=== PATIENT | male | born 1935 | race Caucasian/White ===

== ENCOUNTER 2021-12-31 15:38 | Outpatient (CLI) | payer MEDICARE, BC, SELFPAY | END 2021-12-31 15:39 | disposition home or self-care (01) | LOC: AMB 01-12 11:38 | PROVIDERS: Visit Provider Emergency Medicine Emergency Medical Services | DX: S09.93XA Unspecified injury of face, initial encounter (principal); S89.92XA Unspecified injury of left lower leg, initial encounter; W19.XXXA Unspecified fall, initial encounter; Y92.008 Other place in unspecified non-institutional (private) residence as the place of occurrence of the external cause | CPT/HCPCS: A0425; A0429 ==

== ENCOUNTER 2021-12-31 16:02 | Observation (INO) | payer MEDICARE, BC, SELFPAY ==
[2021-12-31] VITALS (16 sets, daily range): BP systolic 102–134; BP diastolic 64–80; PULSE 62–93; RESP 8–23; TEMP 36.4–36.9; O2SAT 67–97; BMI 33.7; BMI 33.8
--- NOTE | 2021-12-31 16:07 | CRLHL7_ITS ---
For Patients: As a result of the Century Cures Act, medical imaging exams and procedure reports are released immediately into your electronic medical record. You may view this report before your referring provider. If you have questions, please contact your health care provider. INDICATION: Fall, LOC, large laceration. TECHNIQUE: Head CT without contrast. Coronal and sagittal reformats were generated. COMPARISON: None. FINDINGS: CSF spaces: Within normal limits for age. Brain parenchyma and extra-axial spaces: Mild generalized cerebral and cerebellar atrophy. Nonspecific low attenuation white matter changes consistent with chronic microvascular disease. No sign of mass, hemorrhage, or midline shift. Skull base and calvarium: The visualized paranasal sinuses and mastoid air cells demonstrate no acute or significant findings. The visualized orbits are grossly unremarkable. No skull fractures. Soft tissues: Left frontal scalp laceration, with overlying density, likely dressing. Right posterior parietal subgaleal hematoma, with small foci of subcutaneous air, suggestive of laceration. Partially calcified soft tissue nodule in the subcutaneous tissues of the right suboccipital region. IMPRESSION: No acute intracranial abnormality. Please note that all CT scans at this facility use dose modulation, iterative reconstruction, and/or weight-based dosing when appropriate to reduce radiation dose to as low as reasonably achievable. Dictated by Alfredo Ziegler MD @ 12/31/2021 5:05:19 PM (Electronically Signed)
--- NOTE | 2021-12-31 16:07 | CRLHL7_ITS ---
For Patients: As a result of the Century Cures Act, medical imaging exams and procedure reports are released immediately into your electronic medical record. You may view this report before your referring provider. If you have questions, please contact your health care provider. INDICATION: Fall. TECHNIQUE: CT cervical spine without contrast. Coronal and sagittal reformats were generated. COMPARISON: None. FINDINGS: Vertebrae: Alignment is normal. No fractures or suspicious bony lesions. Discs and facet joints: Multilevel degenerative changes in the form of disc space narrowing, subchondral sclerosis, and marginal osteophyte formation. The changes are most prominent at C6-C7. Osteoarthritic changes of the apophyseal joints of the cervical spine. Extraspinal findings: Prevertebral soft tissues, visualized airway, and visualized lungs are unremarkable. IMPRESSION: Degenerative changes. No acute abnormality. Please note that all CT scans at this facility use dose modulation, iterative reconstruction, and/or weight-based dosing when appropriate to reduce radiation dose to as low as reasonably achievable. Dictated by Alfredo Ziegler MD @ 12/31/2021 4:57:28 PM (Electronically Signed)
--- NOTE | 2021-12-31 16:07 | CRLHL7_ITS ---
For Patients: As a result of the Century Cures Act, medical imaging exams and procedure reports are released immediately into your electronic medical record. You may view this report before your referring provider. If you have questions, please contact your health care provider. Indication: Trauma, fall. Technique: Two views of the left knee. Comparison: None. Findings/Impression: Comminuted impacted fracture of the proximal tibial metaphysis. On lateral view, fracture line extends to the tibial plateaus. There is approximately 8 mm posterior displacement of the proximal tibial fracture component. There is an additional mildly displaced fracture of the proximal fibular metaphysis. Small knee joint effusion. Prepatellar soft tissue thickening is noted. Dictated by Sydney Portillo MD @ 12/31/2021 5:11:34 PM (Electronically Signed)
--- NOTE | 2021-12-31 16:12 | ED.GENADULT ---
HPI - General Adult General Chief complaint: Fall/Minor Trauma Stated complaint: Fall w/Head Trauma Time Seen by Provider: 12/31/21 16:07 History of Present Illness HPI narrative: This 86-year-old male comes in by ambulance and a trauma team activation is initiated. He was found down in the garage. He had fallen from a ladder onto the garage floor and had loss of consciousness. He has a large laceration approximately 8 cm on the left side of his head. He complains of pain in his left knee. He does not report any neck pain. He arrives with pressure applied to the ongoing bleed from the left side of his head. Ambulance personnel state that there was a large amount of blood on the floor of the garage. He did have some lightheadedness when they moved him into the ambulance. He does not complain of headache or neck pain. His primary complaint is his left knee. He is on anticoagulants. Related Data Home Medications Medication Instructions Recorded Confirmed aspirin 81 mg chewable tablet 81 mg PO DAILY 12/31/21 12/31/21 clopidogrel 75 mg tablet mg 12/31/21 lisinopril 10 mg tablet mg 12/31/21 nitroglycerin 0.4 mg sublingual mg 12/31/21 tablet simvastatin 20 mg tablet mg 12/31/21 vit C 250 mg-vit E 90 mg-zinc 40 1 tab PO BID 12/31/21 12/31/21 mg-copper 1 [id number] capsule (PreserVision AREDS-2) Allergies Allergy/AdvReac Type Severity Reaction Status Date / Time No Known Drug Allergies Allergy Verified 12/31/21 16:15 Review of Systems Status of ROS: Reports: 10 or more systems reviewed and unremarkable except as noted in History and below Narrative: Constitutional: No fevers, no weight gain or loss. Eyes: No discharge. No vision changes. HENT: No congestion, no sore throat, no ear pain. Laceration on the left side of the head. Cardiovascular: No chest pain, no palpitations. Respiratory: No shortness of breath, no wheezes, no cough. Gastrointestinal: No abdominal pain, no vomiting, no diarrhea. Genitourinary: No dysuria, no hematuria. Musculoskeletal: Unable to lift his left leg. Swelling around the left knee joint. Skin: No rashes, no pruritis. Neurological: No dizziness, weakness, sensory change, speech change. Endo/Heme/Allergies: No bruising or bleeding. No polydipsia. Pysch: no suicidality, no anxiety, no insomnia. All other systems reviewed and are negative. PFSH [facility] Social History Smoking Status: Never smoker Do you use any of these nicotine containing products: None Second hand tobacco smoke exposure: Yes (years ago) How often do you have a drink containing alcohol: never How often do you have six or more drinks on one occasion: Never AUDIT-C Alcohol total score: 0 Non-prescribed substance use: denies use service: Yes Exam Narrative: Exam Narrative: Constitutional: Well-developed, well-nourished, no acute distress. HEENT: Large laceration on the left side of head with ongoing bleeding. It is approximately 8 cm in length. Neck: The patient arrives in a C-collar. Heart: Regular. No murmurs. Normal rate. Intact distal pulses. Lungs: Clear to auscultation. No chest discomfort. No wheezes, rhonchi, or rales. Abdomen: Normal bowel sounds. Nontender. No rebound tenderness. Genitalia: Deferred. Back: No midline tenderness. Normal range of motion. Extremities: Swelling and pain around the left knee joint. He is unable to lift his leg from the bed due to pain and disability. Skin: No rash. Warm. No erythema or pallor. Neurologic: No altered sensation. No weakness. Alert and oriented. GCS is 15. Psychiatric: No suicidality. No anxiety or depression. No insomnia. Nursing notes and vitals signs are reviewed. Const: Vital Signs, click to edit/add: Vital Signs - 24 hr 12/31/21 16:38 12/31/21 17:00 12/31/21 17:00 Temperature 97.5 F L Pulse Rate [Apical ] 68 64 71 Respiratory Rate Blood Pressure [Ri ght Upper Arm] 110/68 118/74 130/75 Pulse Oximetry 91 93 90 Oxygen Delivery Me thod Room Air Room Air Room Air 12/31/21 17:10 12/31/21 17:20 12/31/21 16:30 Temperature Pulse Rate [Apical ] 64 62 72 Respiratory Rate 17 12 Blood Pressure [Ri ght Upper Arm] 102/69 126/71 103/72 Pulse Oximetry 95 95 89 Oxygen Delivery Me thod Room Air Room Air Room Air 12/31/21 16:24 12/31/21 16:17 Temperature Pulse Rate [Apical ] 71 91 Respiratory Rate 12 Blood Pressure [Ri ght Upper Arm] 102/76 125/80 Pulse Oximetry 93 67 L Oxygen Delivery Me thod Room Air Room Air Course Vital Signs Vital signs: Initial Vital Signs Pulse Rate 91 12/31/21 16:17 Respiratory Depth Normal 12/31/21 16:17 Blood Pressure 125/80 12/31/21 16:17 Blood Pressure Mean 95 12/31/21 16:17 Pulse Oximetry 67 L 12/31/21 16:17 Oxygen Delivery Method 12/31/21 16:17 Vital Signs Pulse Rate 91 12/31/21 16:17 Blood Pressure 125/80 12/31/21 16:17 Pulse Oximetry 67 L 12/31/21 16:17 Oxygen Delivery Method 12/31/21 16:17 Temperature 97.5 F L 12/31/21 16:38 Pulse Rate 62 12/31/21 17:20 Respiratory Rate 17 12/31/21 17:10 Blood Pressure 126/71 12/31/21 17:20 Pulse Oximetry 95 12/31/21 17:20 Oxygen Delivery Method 12/31/21 17:20 Medical Decision Making MDM Narrative Medical decision making narrative: This patient comes in with trauma team activation because of a fall in the garage at home. He was up on a ladder and had loss of consciousness. His main complaint is pain in his left knee. He is on blood thinners and has a history of a heart condition and cerebrovascular accident. He arrives with blood pressure a bit light at systolic value of 102. An IV was established and he received a L of normal saline. His blood pressure improved to around 130 for systolic value. He did receive a half a mg of Dilaudid for pain relief at that time. Lab results returned with reassuring hemoglobin at around 14. CT imaging of the head and C-spine is negative for acute injury. He was pumping some blood from the laceration on the left side of his head. Soon after the CT scan was completed IA anesthetize the wound with 1% lidocaine with epinephrine and then placed a total of 11 javier to stop the bleeding and to approximate the wound edges. X-ray imaging of the left knee shows fracture of the proximal tibia and fibula. I relayed these images to the orthopedic surgeon on-call, Dr. Cooper, who stated that he would not likely do a surgical repair of this injury. The patient was placed in a knee immobilizer and I spoke with the hospitalist senior market intelligence consultant, , who will arrange for his admission. He will likely need rehab in a facility. Lab Data Labs: Lab Results 12/31/21 12/31/21 Range/Units 16:07 16:07 WBC 9.59 (4.50-11.00) K/uL RBC 4.64 (4.30-5.90) m/uL Hgb 14.5 (13.5-17.5) gm/dL Hct 43.3 (37.0-53.0) % MCV 93 (80-100) fL MCH 31 (26-34) pg MCHC 34 (32-36) gm/dL RDW Coeff of Zaira 13.5 (11.5-15.5) % Plt Count 248 (140-440) K/uL Neut % (Auto) 42.4 (42.0-72.0) % Lymph % (Auto) 48.1 H (20-44) % [place] % (Auto) 7.9 (0.0-11.0) % Eos % (Auto) 0.9 (0.0-7.0) % Baso % (Auto) 0.3 (0.0-3.0) % Neut # (Auto) 4.06 (1.7-7.0) K/uL Lymph # (Auto) 4.60 H (0.90-2.90) K/uL [place] # (Auto) 0.80 (0.00-0.90) K/UL Eos # (Auto) 0.09 (0.00-0.50) K/uL Baso # (Auto) 0.03 (0.00-0.30) K/uL Abs Immat Gran (auto) 0.04 (0.00-0.30) K/uL Sodium 137 (135-149) mmol/L Potassium 3.7 (3.6-5.1) mmol/L Chloride 106 (96-114) mmol/L Carbon Dioxide 24 (20-32) mmol/L BUN 22 (7-30) mg/dL Creatinine 1.1 (0.5-1.5) mg/dL Estimated GFR 66 ml/min Glucose 132 H (60-115) mg/dL Calcium 8.7 (8.4-10.6) mg/dL Imaging Data CT scan - C spine: Radiologist's impression: Degenerative changes. No acute abnormality. CT scan - head: Radiologist's impression: No acute intracranial abnormality. XR L Knee: Radiologist's impression: Comminuted impacted fracture of the proximal tibial metaphysis. On lateral view, fracture line extends to the tibial plateaus. There is approximately 8 mm posterior displacement of the proximal tibial fracture component. There is an additional mildly displaced fracture of the proximal fibular metaphysis. Small knee joint effusion. Prepatellar soft tissue thickening is noted. ECG Data Attestation: I personally reviewed and interpreted this ECG as follows: Interpretation: Normal sinus rhythm with occasional PVCs. Rate 71 beats per minute. There are no specific ST or T-wave abnormalities. Critical Care Time Critical Care Time Critical Care Time: Yes Attestation: The patient required my highest level preparedness to intervene emergently and I personally spent this critical care time directly and personally managing the patient. This critical care time included: Obtaining a history; Examining the patient; Pulse oximetry; Ordering and reviewing of studies; Arranging urgent treatment with development of a management plan; Evaluation of patients response to treatment; Frequent reassessment discussions with other providers. This critical care time was performed to assess and manage the high probability of imminent life-threatening deterioration that could result in multiorgan failure. It was exclusive of separate billable procedures and treating other patients and teaching time. Total Critical Care Time in Minutes: 40 Discharge Plan Discharge Clinical Impression: Fracture of tibia and fibula, Concussion with loss of consciousness, Laceration of scalp Patient Disposition: Admitted As Inpatient Condition: Unchanged
[2021-12-31 16:19] LABS: Basophils Absolute Auto 0.03 K/uL (0.00-0.30); Basophils Percent Auto 0.3 % (0.0-3.0); Eosinophils Absolute Auto 0.09 K/uL (0.00-0.50); Eosinophils Percent Auto 0.9 % (0.0-7.0); Hematocrit 43.3 % (37.0-53.0); Hemoglobin* 14.5 gm/dL (13.5-17.5); Immature Granulocytes Abs Auto 0.04 K/uL (0.00-0.30); Lymphocytes Percent Auto 48.1 % (20-44); Mean Corpuscular HGB Conc 34 gm/dL (32-36); Mean Corpuscular Hemoglobin 31 pg (26-34); Mean Corpuscular Volume 93 fL (80-100); Monocytes Percent Auto 7.9 % (0.0-11.0); Neutrophils Absolute Auto 4.06 K/uL (1.7-7.0); Neutrophils Percent Auto 42.4 % (42.0-72.0); Platelet Count* 248 K/uL (140-440); RDW Coefficient of Variation % 13.5 % (11.5-15.5); Red Blood Count 4.64 m/uL (4.30-5.90); Slide Review Reflex No; White Blood Count* 9.59 K/uL (4.50-11.00)
[2021-12-31] MEDS: 0.9 % SODIUM CHLORIDE 1000 ml 1,000 ML IV (16:30)
[2021-12-31 16:36] LABS: Chloride* 106 mmol/L (96-114)
[2021-12-31 16:37] LABS: Potassium* 3.7 mmol/L (3.6-5.1); Sodium* 137 mmol/L (135-149)
[2021-12-31 16:39] LABS: Creatinine* 1.1 mg/dL (0.5-1.5); Estimated Glomerular Filt Rate 66 ml/min
[2021-12-31 16:40] LABS: Blood Urea Nitrogen* 22 mg/dL (7-30); Calcium* 8.7 mg/dL (8.4-10.6); Carbon Dioxide* 24 mmol/L (20-32); Glucose* 132 mg/dL (60-115)
[2021-12-31] MEDS: HYDROmorphone 0.5 mg/0.5 ml inj IVP (17:37)
--- NOTE | 2021-12-31 17:37 | ED.NURSE ---
dilaudid 0.5 mg iv given for pain -6/10 in his left knee.
--- NOTE | 2021-12-31 17:45 | ED.NURSE ---
did need to place 02 at 2 l due to sats dropping to 87% after the dilaudid. is much more comfortable. resting. katelynn at bs.
--- NOTE | 2021-12-31 18:15 | ED.NURSE ---
HS aware of admission. did leave and she wants to be called if any changes, otherwise will be back in the am. is resting now. 02 at 2 l and sats 94%.
--- NOTE | 2021-12-31 19:20 | PM.IMHP1 ---
Hospitalist- H&P: HPI History of Present Illness Time Seen by Provider: 18:20 Date Seen: 12/31/21 Chief complaint: Fall w/Head Trauma Narrative: Jerod Weber is a 86 year old male who presented to the emergency room by ambulance after a fall at home. Patient was working in his garage on a ladder when he fell and hit his head. There was a large scalp laceration noted and patient did have brief loss of consciousness. Jerod denies preceding palpitations, dizziness, or lightheadedness. Upon arrival to the ED, his only complaint was some ?stiffness? in the back of his neck. ER course and findings: - trauma code call given age, mechanism, and large bleeding head laceration - no acute findings noted on head CT or C-spine CT - Head laceration repaired with javier. Initial Hgb wnl - comminuted impacted fracture of the proximal tibial metaphysis extending to tibial plateau with 8mm posterior displacement of proximal tibial fx component, in addition to mildly displaced fx of proximal fibular metaphysis - Given dilaudid x1 for pain - ER physician discussed with orthopedic surgery, did not feel that this fracture would require surgery - Placed in a knee immobilizer When I see patient for admission, his only complaint is a feeling of ?stiffness? in the back of his neck. He denies chest pain, palpitations, dizziness, lightheadedness, leg pain, or headache. Past medical history is significant for CAD: multi-vessel stenting in November of 2012, in addition to a drug-eluting stent in proximal RCA in 2013. Last myocardial perfusion study was in October 2020, revealing no evidence of myocardial ischemia, with normal ejection fraction of 63% at that time. Last TTE was performed November 2020, revealing normal LV size and function with mild MR and mild TR. He follows with [facility], last saw Dr. Bennett in November of 2021. During that visit, he was found to be in sinus bradycardia and deferred further workup for this. 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 Known to have an essential tremor, follows with Neurology for this. PCP is Dr. Marques at the [facility]. Patient lives with Keyla machado (she would be medical decision maker if needed). 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 He denies current tobacco or alcohol use. He requests Full Code status. Review of Systems Status of ROS: Reports: 10 or more systems reviewed and unremarkable except as noted in History and below PFSH [facility] Medical History (Updated 12/31/21 @ 18:52 by Vanessa Church MD) ASCVD (arteriosclerotic cardiovascular disease) CVA (cerebral vascular accident) Hyperlipidemia Sinus bradycardia Surgical History (Updated 12/31/21 @ 18:52 by Vanessa Church MD) H/O hernia repair History of cholecystectomy History of heart artery stent Social History Smoking Status: Never smoker Do you use any of these nicotine containing products: None Second hand tobacco smoke exposure: Yes (years ago) How often do you have a drink containing alcohol: never How often do you have six or more drinks on one occasion: Never AUDIT-C Alcohol total score: 0 Non-prescribed substance use: denies use service: Yes Meds Home Medications and Allergies Home Medications Medication Instructions Recorded Confirmed Type aspirin 81 mg chewable tablet 81 mg PO DAILY 12/31/21 12/31/21 History clopidogrel 75 mg tablet 75 mg PO DAILY 12/31/21 12/31/21 History lisinopril 10 mg tablet 10 mg PO DAILY 12/31/21 12/31/21 History nitroglycerin 0.4 mg sublingual 0.4 mg sublingual Q5M PRN 12/31/21 12/31/21 History tablet simvastatin 20 mg tablet 20 mg PO HS 12/31/21 12/31/21 History vit C 250 mg-vit E 90 mg-zinc 40 1 tab PO BID 12/31/21 12/31/21 History mg-copper 1 [id number] capsule (PreserVision AREDS-2) Home Medication Comments: Confirmed that patient stopped Plavix earlier this year. Allergies Allergy/AdvReac Type Severity Reaction Status Date / Time No Known Drug Allergies Allergy Verified 12/31/21 16:15 Exam Narrative: Exam Narrative: GEN: Patient is awake and oriented, he is answering questions appropriately. He is a little sleepy as he received Dilaudid just prior to our interview HEENT: Normal external ears, PERRL and EOMIs bilaterally, no scleral icterus CV: sinus bradycardia with rate in the 50s, No concerning murmurs, rubs, or gallops R: LCTA bilaterally without concerning wheezing, rales, or rhonchi Ext: warm and well perfused with normal peripheral pulses. Wearing knee immobilizer on left Skin: abrasions over right lower extremity, all hemostatic. 8 cm head laceration, repaired with javier and hemostatic Neuro: Nonfocal Psych: Appropriate Const: Vital Signs, click to edit/add: Vital Signs - 24 hr 12/31/21 16:38 12/31/21 17:00 12/31/21 17:00 Temperature 97.5 F L Pulse Rate [Apical ] 68 64 71 Respiratory Rate Blood Pressure [Ri ght Upper Arm] 110/68 118/74 130/75 Pulse Oximetry 91 93 90 Oxygen Delivery Me thod Room Air Room Air Room Air Oxygen Flow Rate 12/31/21 17:10 12/31/21 17:20 12/31/21 16:30 Temperature Pulse Rate [Apical ] 64 62 72 Respiratory Rate 17 12 Blood Pressure [Ri ght Upper Arm] 102/69 126/71 103/72 Pulse Oximetry 95 95 89 Oxygen Delivery Me thod Room Air Room Air Room Air Oxygen Flow Rate 12/31/21 16:24 12/31/21 16:17 12/31/21 17:45 Temperature Pulse Rate [Apical ] 71 91 Respiratory Rate 12 Blood Pressure [Ri ght Upper Arm] 102/76 125/80 Pulse Oximetry 93 67 L 87 L Oxygen Delivery Me thod Room Air Room Air Nasal Cannula Oxygen Flow Rate 2 12/31/21 19:12 12/31/21 17:30 12/31/21 18:00 Temperature Pulse Rate [Apical ] 67 62 Respiratory Rate 8 L Blood Pressure [Ri ght Upper Arm] 116/75 111/67 Pulse Oximetry 93 94 96 Oxygen Delivery Me thod Nasal Cannula Room Air Nasal Cannula Oxygen Flow Rate 12/31/21 18:30 Temperature Pulse Rate [Apical ] 93 Respiratory Rate 23 Blood Pressure [Ri ght Upper Arm] 108/64 Pulse Oximetry 96 Oxygen Delivery Me thod Nasal Cannula Oxygen Flow Rate Hospitalist - H&P: Result Labs Labs: Short CBC 12/31/21 Range/Units 16:07 WBC 9.59 (4.50-11.00) K/uL Hgb 14.5 (13.5-17.5) gm/dL Hct 43.3 (37.0-53.0) % Plt Count 248 (140-440) K/uL BMP 12/31/21 16:07 Sodium 137 Potassium 3.7 Chloride 106 Carbon Dioxide 24 BUN 22 Creatinine 1.1 Glucose 132 H Calcium 8.7 Assessment and Plan Assessment and plan (1) Fracture of tibia and fibula: Status: Acute (2) Fall: Status: Acute (3) Concussion with loss of consciousness: Status: Acute (4) Laceration of scalp: Status: Acute (5) Sinus bradycardia: Status: Acute Plan 86 yo male with fall at home resulting in head laceration and tib/fib fracture: 1. Fracture: Per Ortho, continue knee immobilizer. PT/OT referrals ordered to assist with dispo planning. 2. Follow serial hemoglobins given bleeding from head laceration. 3. Although patient believes fall was mechanical, will monitor with telemetry given bradycardia and CAD history. 4. Defer prophylaxis at this time given laceration/bleeding. 5. Patient requests Full Code status.
--- NOTE | 2021-12-31 19:21 | W.PC.EDHO ---
Primary Language: Preferred Language: Orientation Status: [] Alert & Oriented [x] Slight Confusion [] Known Dx Dementia Transfers By: [] Assist of 1 [x] Assist of 2 [] Lift Active Medications Discontinued Medications Generic Name Dose Route Start Last Admin Trade Name Rima PRN Reason Stop Dose Admin Hydromorphone HCl 0.5 mg 12/31/21 18:16 12/31/21 17:37 Hydromorphone 0.5 Mg/0.5 Ml Inj IVP 12/31/21 18:17 0.5 mg ONCE ONE Administration Sodium Chloride 1,000 mls @ 1,000 mls/hr 12/31/21 16:15 12/31/21 17:33 0.9 % Sodium Chloride 1000 Ml IV 12/31/21 17:14 Infused .Q1H MT Infusion Description of Symptoms ED Triage Present Problem tta was called. had fallen on the concrete floor Description from his ladder. unknown how far he fell, was descending from the 6 foot tall ladder. was into the storage area of the garage. found him on the floor in a pool of blood, by his head. upon arrival is talking and had an immediate ct scan. ems was holding pressure dressing on the left side of his head. this had been bleeding profusely. is on plavix and asa. upon arrival back from ct dr vega did staple the approx 8 cm. ED Triage Date of Onset of 12/31/21 Symptoms Female History Patient Alexandru Coma Scale [place] coma scale total score 15 Pain Pain Description [Left Dull, Achy Shoulder] Pain Description [Left Knee] Sharp Pain Intensity [Left Shoulder] 5 Pain Intensity [Left Knee] 6 Pain Intensity 3 Pain Intensity 0 Pain Intensity 6 Pain Intensity 6 Pain Scale Used [Left Shoulder Numeric (1 - 10) ] Pain Scale Used [Left Knee] Numeric (1 - 10) Pain Scale Used Numeric (1 - 10) Pain Scale Used Numeric (1 - 10) Pain Scale Used Numeric (1 - 10) Pain Scale Used Numeric (1 - 10) IV Insertion/Site Date of IV Line Insertion [ 12/31/21 Left Hand] Oxygen Administration Pulse Oximetry 93 Pulse Oximetry 96 Pulse Oximetry 96 Pulse Oximetry 87 Pulse Oximetry 94 Pulse Oximetry 95 Pulse Oximetry 95 Pulse Oximetry 90 Pulse Oximetry 93 Pulse Oximetry 91 Pulse Oximetry 89 Pulse Oximetry 93 Pulse Oximetry 67 Oxygen Delivery Method Nasal Cannula Oxygen Delivery Method Nasal Cannula Oxygen Delivery Method Nasal Cannula Oxygen Delivery Method Nasal Cannula Oxygen Delivery Method Room Air Oxygen Delivery Method Room Air Oxygen Delivery Method Room Air Oxygen Delivery Method Room Air Oxygen Delivery Method Room Air Oxygen Delivery Method Room Air Oxygen Delivery Method Room Air Oxygen Delivery Method Room Air Oxygen Delivery Method Room Air Oxygen Flow Rate 2 Cardiac Monitoring EKG Method 12 Lead
[2021-12-31 19:49] LABS: SARS PCR* Negative SARS-CoV-2 (Negative)
[2021-12-31 20:21] LABS: Hemoglobin* 13.4 gm/dL (13.5-17.5)
[2021-12-31] MEDS: SIMVASTATIN 20 MG TABLET PO (21:33)
[2021-12-31] MEDS: OXYCODONE 5 MG TABLET PO ×2 (21:37→22:47)
[2022-01-01 01:39] LABS: INR 1.04 (0.91-1.10)
[2022-01-01 03:10] VITALS: BP 105/78; PULSE 84; RESP 20; TEMP 36.6; O2SAT 94
[2022-01-01 06:53] LABS: Basophils Absolute Auto 0.02 K/uL (0.00-0.30); Basophils Percent Auto 0.2 % (0.0-3.0); Eosinophils Absolute Auto 0.01 K/uL (0.00-0.50); Eosinophils Percent Auto 0.1 % (0.0-7.0); Hematocrit 37.9 % (37.0-53.0); Hemoglobin* 12.3 gm/dL (13.5-17.5); Immature Granulocytes Abs Auto 0.08 K/uL (0.00-0.30); Lymphocytes Percent Auto 15.1 % (20-44); Mean Corpuscular HGB Conc 33 gm/dL (32-36); Mean Corpuscular Hemoglobin 31 pg (26-34); Mean Corpuscular Volume 95 fL (80-100); Monocytes Percent Auto 8.1 % (0.0-11.0); Neutrophils Percent Auto 75.8 % (42.0-72.0); Platelet Count* 207 K/uL (140-440); RDW Coefficient of Variation % 13.8 % (11.5-15.5); Red Blood Count 3.98 m/uL (4.30-5.90); White Blood Count* 10.76 K/uL (4.50-11.00)
[2022-01-01 07:00] VITALS: BP 116/61; PULSE 77; PULSE 78; RESP 18; TEMP 37.1; O2SAT 94
[2022-01-01 07:01] LABS: Slide Review Reflex No
[2022-01-01 07:13] LABS: Chloride* 103 mmol/L (96-114); Potassium* 4.4 mmol/L (3.6-5.1); Sodium* 135 mmol/L (135-149)
[2022-01-01 07:16] LABS: Blood Urea Nitrogen* 24 mg/dL (7-30); Carbon Dioxide* 26 mmol/L (20-32); Creatinine* 1.2 mg/dL (0.5-1.5); Est. Creatinine Clearance* 42.84; Estimated Glomerular Filt Rate 60 ml/min; Glucose* 162 mg/dL (60-115)
[2022-01-01 07:17] LABS: Calcium* 8.3 mg/dL (8.4-10.6)
--- NOTE | 2022-01-01 07:37 | PC.NURSE ---
END OF SHIFT NOTE: PT PLEASANT AND COOPERATIVE. A&O x3. HEAD LAC TO LEFT SIDE OF FOREHEAD; APPROXIMATELY 8CM IN LENGTH, CLOSED WITH 11 BETTINA AND OPEN TO AIR. DRIED BLOOD SCATTERED ON PT HEAD. ?PT DENIES CP, SOB, N/V. PT RATES LEFT LEG PAIN 5-11/29. PRN OXYCODONE ADMINISTERED WITH NOTED RELIEF. IMMOBILIZER IN PLACE ON LEFT LEG, ACTIVE ICE AND ELEVATION. PT HAS MILD PAIN TO HEAD, NECK, LEFT SHOULDER AND BACK; PT STATES ?I?M SURE I PULLED SOME MUSCLES WHEN I FELL?. PT HAS RECOLLECTION UP UNTIL FALL; PT STATES ?I GOT INTO A POSITION I COULDN?T GET OUT OF?. TELE READS NSR. O2 SATS 93-95% ON 1L NC. PT USES URINAL. REPOSITIONED WITH PILLOWS FOR OFFLOADING. SPOKE WITH PT?S -ZAIN THIS MORNING ON TELEPHONE WITH UPDATE; TO BRING IN READING GLASSES AND EXTRA CLOTHES.
[2022-01-01] MEDS: ACETAMINOPHEN 325 MG TABLET 975 MG PO (09:12)
[2022-01-01] MEDS: lisinopriL 10 MG TABLET PO (09:12)
[2022-01-01] MEDS: OXYCODONE 5 MG TABLET PO ×2 (09:13→14:00)
[2022-01-01 11:00] VITALS: BP 118/67; TEMP 36.9; O2SAT 93
--- NOTE | 2022-01-01 14:04 | PC.SOCIAL ---
Spoke to Jerod and his Keyla. There are no open beds at the [facility] in [place]. Provided options for other cities nearby. Keyla stated that she would like us to check with [facility] as a first option. If there is no opening then the next preference is [place] or [place]. Called admissions at [facility] and they reported they have an open bed. Faxed over referral packet to [facility]. Spoke to Jerod and provided him with an update. Called Keyla and provided her with an update.
[2022-01-01 15:00] VITALS: BP 122/92; PULSE 80; RESP 18; TEMP 36.8; O2SAT 91; O2SAT 92
--- NOTE | 2022-01-01 15:05 | P.DS_ITS ---
DS: Providers Provider Date Seen: 01/01/22 Date of admission: 12/31/21 18:44 Primary care physician: Not a Local Provider Admitting Clinician: Vanessa Church MD Attending Physician on discharge: Vanessa Church MD Date of Discharge: 01/01/22 DS: Diagnosis Discharge Diagnosis (1) Fracture of tibia and fibula: Status: Acute Problem details: Fracture is in fairly good alignment. Initial treatment plan is conservative management. Nonweightbearing with knee immobilizer. Follow up with Dr. Pinon in 1 week for recheck. (2) Concussion with loss of consciousness: Status: Acute Problem details: CT of the head showed no apparent intracranial bleed. No apparent neurologic sequelae. (3) Laceration of scalp: Status: Acute Problem details: [place] should be removed in 10 days DS: Summary Hospital Course Hospital Course: 86-year-old male admitted the hospital after a fall at home. In the fall he fractured his left tibia and fibula, sustained a head injury and head laceration. Multiple minor injuries also occurred. He was monitored in the hospital without having sequelae of his head injury. His other minor injuries he reports are better today. He still having moderate amount of pain with his proximal tibia and fibular fractures. He was evaluated by Physical therapy and was unable to transfer bed to chair without assistance. Status at Discharge Functional status at discharge: wheelchair bound Overall status at discharge: patient is progressing back to baseline Time Spent with Patient Time attestation: Total time spent providing and/or coordinating discharge services: Exam Narrative: Exam Narrative: He is alert and gives his own history. Anterior Scalp laceration is stapled shut at wound is a healing well without apparent infection. No other apparent head trauma. He has no obvious facial asymmetry. Oropharynx with small airway. Respirations are clear to auscultation. Cardiovascular: S1, S2, regular rate and rhythm. Left lower extremities in a knee immobilizer. He has intact pedal pulses and intact motion in his foot and ankle on the left. No significant edema. Const: Vital Signs, click to edit/add: Vital Signs - 24 hr 12/31/21 16:38 12/31/21 17:00 12/31/21 17:00 Temperature 97.5 F L Pulse Rate Pulse Rate [Apical ] 68 64 71 Pulse Rate [Pulse Oximeter] Respiratory Rate Blood Pressure [Le ft Arm] Blood Pressure [Ri ght Upper Arm] 110/68 118/74 130/75 Pulse Oximetry 91 93 90 Oxygen Delivery Me thod Room Air Room Air Room Air Oxygen Flow Rate 12/31/21 17:10 12/31/21 17:20 12/31/21 16:30 Temperature Pulse Rate Pulse Rate [Apical ] 64 62 72 Pulse Rate [Pulse Oximeter] Respiratory Rate 17 12 Blood Pressure [Le ft Arm] Blood Pressure [Ri ght Upper Arm] 102/69 126/71 103/72 Pulse Oximetry 95 95 89 Oxygen Delivery Me thod Room Air Room Air Room Air Oxygen Flow Rate 12/31/21 16:24 12/31/21 16:17 12/31/21 17:45 Temperature Pulse Rate Pulse Rate [Apical ] 71 91 Pulse Rate [Pulse Oximeter] Respiratory Rate 12 Blood Pressure [Le ft Arm] Blood Pressure [Ri ght Upper Arm] 102/76 125/80 Pulse Oximetry 93 67 L 87 L Oxygen Delivery Me thod Room Air Room Air Nasal Cannula Oxygen Flow Rate 2 12/31/21 19:12 12/31/21 17:30 12/31/21 18:00 Temperature Pulse Rate Pulse Rate [Apical ] 67 62 Pulse Rate [Pulse Oximeter] Respiratory Rate 8 L Blood Pressure [Le ft Arm] Blood Pressure [Ri ght Upper Arm] 116/75 111/67 Pulse Oximetry 93 94 96 Oxygen Delivery Me thod Nasal Cannula Room Air Nasal Cannula Oxygen Flow Rate 12/31/21 18:30 12/31/21 20:29 12/31/21 20:29 Temperature 98.4 F Pulse Rate Pulse Rate [Apical ] 93 Pulse Rate [Pulse Oximeter] 71 Respiratory Rate 23 20 20 Blood Pressure [Le ft Arm] 134/70 Blood Pressure [Ri ght Upper Arm] 108/64 Pulse Oximetry 96 97 97 Oxygen Delivery Me thod Nasal Cannula Room Air Room Air Oxygen Flow Rate 12/31/21 22:10 12/31/21 20:10 12/31/21 23:45 Temperature 98.4 F Pulse Rate 67 Pulse Rate [Apical ] Pulse Rate [Pulse Oximeter] 71 71 Respiratory Rate 20 20 Blood Pressure [Le ft Arm] 134/70 Blood Pressure [Ri ght Upper Arm] Pulse Oximetry 97 Oxygen Delivery Me thod Room Air Oxygen Flow Rate 2 12/31/21 23:45 12/31/21 23:45 01/01/22 03:10 Temperature 98.2 F 97.8 F Pulse Rate Pulse Rate [Apical ] Pulse Rate [Pulse Oximeter] 71 84 Respiratory Rate 20 20 20 Blood Pressure [Le ft Arm] 116/74 105/78 Blood Pressure [Ri ght Upper Arm] Pulse Oximetry 95 95 94 Oxygen Delivery Me thod Nasal Cannula Nasal Cannula Nasal Cannula Oxygen Flow Rate 1.5 1.5 1.5 01/01/22 07:00 01/01/22 07:00 01/01/22 07:00 Temperature 98.8 F Pulse Rate 77 Pulse Rate [Apical ] Pulse Rate [Pulse Oximeter] 78 Respiratory Rate 18 18 Blood Pressure [Le ft Arm] 116/61 Blood Pressure [Ri ght Upper Arm] Pulse Oximetry 94 Oxygen Delivery Me thod Nasal Cannula Nasal Cannula Oxygen Flow Rate 1 1 01/01/22 11:00 Temperature 98.5 F Pulse Rate Pulse Rate [Apical ] Pulse Rate [Pulse Oximeter] Respiratory Rate Blood Pressure [Le ft Arm] 118/67 Blood Pressure [Ri ght Upper Arm] Pulse Oximetry 93 Oxygen Delivery Me thod Nasal Cannula Oxygen Flow Rate 1 Documenting provider has reviewed patient's vital signs: yes DS: Data Data Completed and Pending Labs on day of discharge: Labs from last 24 hours 01/01/22 01/01/22 12/31/21 06:06 06:06 20:16 WBC 10.76 RBC 3.98 L Hgb 12.3 L 13.4 L Hct 37.9 MCV 95 MCH 31 MCHC 33 RDW Coeff of Zaira 13.8 Plt Count 207 Neut % (Auto) 75.8 H Lymph % (Auto) 15.1 L [place] % (Auto) 8.1 Eos % (Auto) 0.1 Baso % (Auto) 0.2 Neut # (Auto) 8.20 H Lymph # (Auto) 1.60 [place] # (Auto) 0.90 Eos # (Auto) 0.01 Baso # (Auto) 0.02 Abs Immat Gran (auto) 0.08 INR Sodium 135 Potassium 4.4 Chloride 103 Carbon Dioxide 26 BUN 24 Creatinine 1.2 Estimated Creat Clear 42.84 Estimated GFR 60 Glucose 162 H Calcium 8.3 L SARS-CoV-2 (PCR) Blood Type Antibody Screen 12/31/21 12/31/21 12/31/21 18:33 16:09 16:07 WBC RBC Hgb Hct MCV MCH MCHC RDW Coeff of Zaira Plt Count Neut % (Auto) Lymph % (Auto) [place] % (Auto) Eos % (Auto) Baso % (Auto) Neut # (Auto) Lymph # (Auto) [place] # (Auto) Eos # (Auto) Baso # (Auto) Abs Immat Gran (auto) INR 1.04 Sodium 137 Potassium 3.7 Chloride 106 Carbon Dioxide 24 BUN 22 Creatinine 1.1 Estimated Creat Clear Estimated GFR 66 Glucose 132 H Calcium 8.7 SARS-CoV-2 (PCR) Negative SARS-CoV-2 Blood Type Antibody Screen 12/31/21 12/31/21 16:07 16:07 WBC 9.59 RBC 4.64 Hgb 14.5 Hct 43.3 MCV 93 MCH 31 MCHC 34 RDW Coeff of Zaira 13.5 Plt Count 248 Neut % (Auto) 42.4 Lymph % (Auto) 48.1 H [place] % (Auto) 7.9 Eos % (Auto) 0.9 Baso % (Auto) 0.3 Neut # (Auto) 4.06 Lymph # (Auto) 4.60 H [place] # (Auto) 0.80 Eos # (Auto) 0.09 Baso # (Auto) 0.03 Abs Immat Gran (auto) 0.04 INR Sodium Potassium Chloride Carbon Dioxide BUN Creatinine Estimated Creat Clear Estimated GFR Glucose Calcium SARS-CoV-2 (PCR) Blood Type A Positive Antibody Screen NEGATIVE Discharge Plan Discharge Disposition: [facility] Date of Admission: 12/31/21 18:44 Attending Provider on Discharge: Roman Cast Consulting Providers: Kan Pinon Primary Care Provider: Provider,Not a Local Condition: Unchanged Discharge Medications: New oxycodone 5 mg Tablet 5 - 10 mg PO Q4H PRN (Reason: Moderate Pain) Qty: 30 0RF senna 8.6 mg capsule 17.2 mg PO BID Qty: 30 0RF Continued simvastatin 20 mg tablet 20 mg PO HS Label Comments: TAKE 1 TABLET BY MOUTH ONCE DAILY WITH EVENING MEAL lisinopril 10 mg tablet 10 mg PO DAILY Label Comments: TAKE 1 TABLET BY MOUTH ONCE DAILY nitroglycerin 0.4 mg tablet, sublingual 0.4 mg sublingual Q5M PRN Label Comments: DISSOLVE ONE TABLET UNDER THE TONGUE EVERY 5 MINUTES NEEDED FOR CHEST PAIN. DO NOT EXCEED A TOTAL OF 3 DOSES IN 15 MINUTES PreserVision AREDS-2 250-90-40-1 mg capsule 1 tab PO Q48H Label Comments: TAKES EVERY OTHER DAY aspirin 81 mg tablet,chewable 81 mg PO DAILY Discharge Orders: Discharge Order (Routine); Ordered 01/01/22 Ordered By: Roman Cast Activity Restrictions/Additional Instructions: Oxygen at 0-2 L per nasal cannula as needed to maintain O2 sats above 90%. Activity Level: No Weight Bearing Activity Detail: Nonweightbearing on left leg. Maintain knee immobilizer. Discharge Diet: Regular Follow Up Appointments: Kan Pinon MD [Staff Physician] - (Follow up with Orthopedics in 1 week) Provider,Not a Local [Primary Care Provider] -
--- NOTE | 2022-01-01 15:51 | PC.SOCIAL ---
Social work: Pt has been accepted for admit to [facility] on Tuesday morning for short term rehab.
--- NOTE | 2022-01-01 16:09 | PC.NURSE ---
Pt became diaphoretic and nauseated when assisted up by Steve from PT. Please see eMar for medications provided for pain management on day shift. Pt tolerating regular diet, he was transferred to the recliner via ceiling lift this afternoon. I like being in the chair, just feel tired out. Keyla present earlier today and was updated on pt condition. Plan SNF placement for rehab and strengthening.
--- NOTE | 2022-01-01 16:36 | PC.SOCIAL ---
Pre-admission screening completed for half-way stay. Confirmation #[id number]. Screening was saved in shared drive.
[2022-01-01 19:00] VITALS: BP 121/70; PULSE 86; RESP 18; TEMP 36.1; O2SAT 91
[2022-01-01] MEDS: SIMVASTATIN 20 MG TABLET PO (20:38)
[2022-01-01 23:00] VITALS: BP 122/66; PULSE 85; RESP 18; TEMP 37.2; O2SAT 95
[2022-01-02] VITALS (7 sets, daily range): BP systolic 122–133; BP diastolic 64–86; PULSE 76–83; RESP 16–18; TEMP 36.6–37.1; O2SAT 91–95
[2022-01-02] MEDS: ACETAMINOPHEN 325 MG TABLET 975 MG PO ×2 (04:50→16:24)
[2022-01-02] MEDS: OXYCODONE 5 MG TABLET PO ×2 (04:50→09:32)
--- NOTE | 2022-01-02 05:49 | PC.NURSE ---
[id number] Pt. rested well during shift, denied pain, controlled w/PRN oxy and tylenol see emar. L. Knee remains in emobilizer, active ice to site. No N/V/Chest pain. Repo Q2Hrs. uses urinal indep.
[2022-01-02] MEDS: lisinopriL 10 MG TABLET PO (09:33)
--- NOTE | 2022-01-02 15:41 | P.IMPN_ITS ---
Progress Note: A&P Assessment and plan (1) Fracture of tibia and fibula: Problem details: Fracture is in fairly good alignment. Initial treatment plan is conservative management. Nonweightbearing with knee immobilizer. Follow up with Dr. Pinon in 1 week for recheck. Status: Acute Assessment and Plan: agree with above. transfer to acute rehab on 01/04. (2) Concussion with loss of consciousness: Problem details: CT of the head showed no apparent intracranial bleed. No apparent neurologic sequelae. Status: Acute Assessment and Plan: stable. (3) Laceration of scalp: Problem details: [place] should be removed in 10 days Status: Acute Assessment and Plan: stable. (4) Hx of completed stroke: Status: Acute Assessment and Plan: Stable. However there is some right lower extremity chronic instability and now with his left knee immobile, rehab, inpatient, is being pursued. (5) ASCVD (arteriosclerotic cardiovascular disease): Status: Acute Assessment and Plan: Restarted his aspirin 81 mg q.day, Plavix in the morning. Lovenox q.h.s. at least tonight. May consider lower extremity ultrasound prior to discharge/transfer Plan I encouraged the patient to be as active as possible. Obviously is nonweightbearing on his left lower extremity. But with his history of stroke and SC I am were concerned about his loss of strength and risk of inactivity as it relates to his chronic disease and known complications post fracture like PE or SC. Subjective Date Seen: 01/02/22 Interval history: Daily Progress Note - Hospital Medicine Day #: 3 CC: Proximal left tib-fib fracture. Scalp laceration. Awaiting rehab placement. OVERNIGHT UPDATES FROM STAFF & MED, LAB, IMAGING UPDATES team note: [phone] Pt. rested well during shift, denied pain, controlled w/PRN oxy and tylenol see emar. L. Knee remains in emobilizer, active ice to site. No N/V/Chest pain. Repo Q2Hrs. uses urinal indep. Blood pressure, pulse, respiratory rate and temp all reviewed. No concerns. On room air. Hemoglobin has trended from 14.5-12.3. I will continue to trend this. He does take Plavix and aspirin for his history of heart disease - these have been on hold since admission. Glucose mildly elevated 162 this morning. aic ordered. Review of Systems: See subjective Cardiac: No new chest pain/pressure/palpitations. Respiratory: no new dyspnea. GI: No abdominal bloating Objective: clear minded. asked good questions. I leena pictures and showed xrays to him and his . Vitals: see above Lungs: Clear. Cardiac: S1S2. NVI - b/l lower extremitis. warm and able to flex and extend at he ankle with knee immobilizer on. did not take down the immobilizer. Disposition/Potential discharge - rehab transfer 01/04 Total time is 35 minutes with greater than 50% spent in counseling and coordination of care. Exam Const: Vital Signs, click to edit/add: Vital Signs - 24 hr 01/01/22 19:00 01/01/22 23:00 01/01/22 23:00 Temperature 97.0 F L Pulse Rate [Pulse Oximeter] 86 85 Respiratory Rate 18 18 18 Blood Pressure [Le ft Arm] 121/70 Pulse Oximetry 91 95 Oxygen Delivery Me thod Room Air Nasal Cannula Oxygen Flow Rate 2 01/01/22 23:00 01/02/22 03:00 01/02/22 09:35 Temperature 98.9 F 97.8 F Pulse Rate [Pulse Oximeter] 85 81 Respiratory Rate 18 18 18 Blood Pressure [Le ft Arm] 122/66 133/71 Pulse Oximetry 95 92 95 Oxygen Delivery Me thod Nasal Cannula Nasal Cannula Room Air Oxygen Flow Rate 2 2 0 01/02/22 09:35 01/02/22 07:00 01/02/22 11:45 Temperature 98.3 F 98.2 F Pulse Rate [Pulse Oximeter] 83 83 76 Respiratory Rate 18 18 16 Blood Pressure [Le ft Arm] 122/72 131/64 Pulse Oximetry 95 92 Oxygen Delivery Me thod Room Air Room Air Oxygen Flow Rate 0
[2022-01-02 16:54] LABS: Hemoglobin A1C* 6.33 % (0-5.6)
--- NOTE | 2022-01-02 20:29 | PC.NURSE ---
: Pt. up w/pivot transfer to chair, ceiling lift back to bed. Tolerated well. Declined need for oxycodone this afternoon but took acetaminophen. Pain rated 3-6/10. Lung sounds clear, bowel sounds active. Voiding well, tolerating regular diet. Immobilizer in place to left leg. Pedal pulses intact. Plan is for patient to go to SNF on Tuesday. Pt. on room air all day. Verbal order received to D/C tele per Dr. Martinez.
[2022-01-02] MEDS: SIMVASTATIN 20 MG TABLET PO (20:37)
[2022-01-02] MEDS: ENOXAPARIN 40 MG/0.4 ML INJ SUBCUT (20:38)
[2022-01-03] MEDS: OXYCODONE 5 MG TABLET PO ×4 (02:25→20:03)
[2022-01-03] MEDS: ACETAMINOPHEN 325 MG TABLET 975 MG PO ×2 (02:25→20:03)
[2022-01-03 03:00] VITALS: BP 131/70; PULSE 77; RESP 16; TEMP 36.9; O2SAT 94
--- NOTE | 2022-01-03 06:17 | PC.NURSE ---
[id number] Pt. rested well during night. complained of feeling stiff d/t lack of activity/movement. Repo q2-3 hrs during night pt. stated this helped a little as well as PRN pain medications. Pt. requesting stool softner if no BM today.
[2022-01-03 07:08] LABS: Hemoglobin* 9.8 gm/dL (13.5-17.5)
[2022-01-03 07:50] VITALS: BP 129/69; PULSE 64; RESP 18; TEMP 36.6; O2SAT 93
[2022-01-03] MEDS: lisinopriL 10 MG TABLET PO (08:47)
[2022-01-03] MEDS: OCUVITE TABLET 1 TAB PO (08:47)
[2022-01-03] MEDS: ASPIRIN 81 MG TAB.CHEW PO (08:47)
[2022-01-03 11:00] VITALS: BP 118/72; PULSE 68; RESP 18; TEMP 36.8; O2SAT 98
[2022-01-03 15:00] VITALS: BP 125/69; PULSE 83; RESP 18; TEMP 36.6; O2SAT 92
--- NOTE | 2022-01-03 16:33 | PM.IMPN1 ---
Progress Note: A&P Assessment and plan (1) Fracture of tibia and fibula: Problem details: Fracture is in fairly good alignment. Initial treatment plan is conservative management. Nonweightbearing with knee immobilizer. Follow up with Dr. Pinon in 1 week for recheck. Status: Acute Assessment and Plan: Stable. Improving. (2) Acute blood loss anemia: Status: Acute Assessment and Plan: No transfusion necessary. This is likely related to blood loss the time of the accident. Continue to monitor. (3) Concussion with loss of consciousness: Problem details: CT of the head showed no apparent intracranial bleed. No apparent neurologic sequelae. Status: Acute Assessment and Plan: Continue to monitor. (4) Laceration of scalp: Problem details: [place] should be removed in 10 days Status: Acute (5) Hx of completed stroke: Status: Acute (6) ASCVD (arteriosclerotic cardiovascular disease): Status: Acute Subjective Date Seen: 01/03/22 Interval history: Daily Progress Note - Hospital Medicine Day #: 4 CC: Proximal left tib-fib fracture. Scalp laceration. Awaiting rehab placement. OVERNIGHT UPDATES FROM STAFF & MED, LAB, IMAGING UPDATES team note: [phone] Pt. rested well during night. complained of feeling stiff d/t lack of activity/movement. Repo q2-3 hrs during night pt. stated this helped a little as well as PRN pain medications. Pt. requesting stool softner if no BM today. Hemoglobin has drifted down to 9.8. On presentation after his accident he was 14.5 I am relatively sure this accounts for the blood loss from the scalp laceration and likely fracture hematoma. Review of Systems: See subjective Cardiac: No new chest pain/pressure/palpitations. Respiratory: no new dyspnea. GI: No abdominal bloating Objective: clear minded. asked good questions. Discussed rehab. Vitals: see above Lungs: Clear. Cardiac: S1S2. NVI - b/l lower extremitis. warm and able to flex and extend at he ankle with knee immobilizer on. did not take down the immobilizer. Disposition/Potential discharge - rehab transfer 01/04 Total time is 35 minutes with greater than 50% spent in counseling and coordination of care. Exam Const: Vital Signs, click to edit/add: Vital Signs - 24 hr 01/02/22 19:00 01/02/22 23:00 01/02/22 23:00 Temperature 98.7 F Pulse Rate [Pulse Oximeter] 83 76 Respiratory Rate 16 16 Blood Pressure [Le ft Arm] 125/86 Pulse Oximetry 91 91 Oxygen Delivery Me thod Room Air Room Air Oxygen Flow Rate 0 01/02/22 23:00 01/03/22 03:00 01/03/22 07:50 Temperature 98.7 F 98.5 F Pulse Rate [Pulse Oximeter] 76 77 Respiratory Rate 16 16 18 Blood Pressure [Le ft Arm] 125/86 131/70 Pulse Oximetry 91 94 93 Oxygen Delivery Me thod Room Air Room Air Room Air Oxygen Flow Rate 0 0 01/03/22 07:50 01/03/22 11:00 Temperature 97.8 F 98.2 F Pulse Rate [Pulse Oximeter] 64 68 Respiratory Rate 18 18 Blood Pressure [Le ft Arm] 129/69 118/72 Pulse Oximetry 93 98 Oxygen Delivery Me thod Room Air Room Air Oxygen Flow Rate Labs Labs: Laboratory Results - last 24 hr 01/01/22 01/03/22 06:06 06:34 Hgb 9.8 L Hemoglobin A1c 6.33 H
[2022-01-03 19:00] VITALS: BP 116/74; PULSE 81; RESP 16; TEMP 37; O2SAT 94
--- NOTE | 2022-01-03 19:52 | PC.NURSE ---
shift note: vss stable. pt medicated x2 with oxycodone for lt l/e pain 5-12/30. PP+ bilat. Pt lt foot dusky and swollen this a.m. Elevated and repositioned lt l/e with color returning and decrease in swelling. pt up with ceiling lift to recliner for meals. LS clr. pt using IS indept ; 4 breaths each attempt to 2000. Pt states he feel dizzy with turns in bed. javier intact to lt upper forehead. IV patent
[2022-01-03] MEDS: ENOXAPARIN 40 MG/0.4 ML INJ SUBCUT (20:02)
[2022-01-03] MEDS: SIMVASTATIN 20 MG TABLET PO (20:03)
[2022-01-03 23:00] VITALS: BP 87/60; PULSE 80; RESP 16; TEMP 36.9; O2SAT 92
[2022-01-04 03:00] VITALS: BP 121/62; PULSE 74; RESP 18; TEMP 36.8; O2SAT 94
--- NOTE | 2022-01-04 05:45 | PC.NURSE ---
[id number] Pt rested well during night, prn pain medications x1 and pt able to sleep during the night. has not had BM since 12/31, declined stool softener and supp until day hours.
[2022-01-04 07:00] VITALS: BP 128/71; PULSE 83; RESP 14; TEMP 36.8; O2SAT 95
[2022-01-04] MEDS: SODIUM CHLORIDE 0.9 % (FLUSH) 10 ML SYRINGE 5 ML IVF (08:46)
[2022-01-04] MEDS: lisinopriL 10 MG TABLET PO (08:46)
[2022-01-04] MEDS: ASPIRIN 81 MG TAB.CHEW PO (08:46)
[2022-01-04] MEDS: CLOPIDOGREL 75 MG TABLET PO (08:46)
[2022-01-04] MEDS: polyethylene glycoL 3350 17 GM PACK PO (09:28)
[2022-01-04 10:00] VITALS: BP 128/71; PULSE 83; RESP 14; TEMP 36.8
--- NOTE | 2022-01-04 10:15 | PC.SOCIAL ---
Pt. will discharge to the [facility] at 11 am today via non-emergency ambulance.
[2022-01-04] MEDS: OXYCODONE 5 MG TABLET PO (10:54)
[2022-01-04 11:00] VITALS: BP 119/66; PULSE 96; RESP 16; TEMP 36.6; O2SAT 96
--- NOTE | 2022-01-04 12:33 | PC.NURSE ---
shift [id number] pt this shift calm and cooperative. A&Ox4. Edema trace pitting in left foot, CMS intact. Knee immobilizer in place left leg. [place] in place on forehead laceration, crusted dried blood noted. No discharge or SS of infection. Pain scale at 3-4/10, oxycodone give (see eMAR). Improved tolerance with sit to stand using gait belt and walker with 1 assist. kenneth lift transfer only. No BM day 4, requested Miralax, see eMAR. Discharged to [facility] at 1205 via EMT. IV dc'd, nurse to nurse report done.
--- NOTE | 2022-01-04 16:48 | P.DS_ITS ---
DS: Providers Provider Date Seen: 01/04/22 Date of admission: 12/31/21 18:44 Primary care physician: Not a Local Provider Admitting Clinician: Vanessa Church MD Consults: 12/31/21 19:59 Consult to Physical Therapy [CONS] Routine Comment: Reason(s) for PT Consult:: Evaluate and Treat Any Restrictions?:: Partial Wt Bearing 12/31/21 20:02 Consult to Occupational Therapy [CONS] Routine Comment: Reason(s) for OT Consult:: Evaluate and Treat Any Restrictions?:: Partial Wt Bearing 12/31/21 20:57 Consult to Occupational Therapy [CONS] Routine Comment: Reason(s) for OT Consult:: Evaluate and Treat Any Restrictions?:: Unknown Consult to Physical Therapy [CONS] Routine Comment: Reason(s) for PT Consult:: Evaluate and Treat Any Restrictions?:: Unknown Attending Physician on discharge: Carmen Martinez MD [facility] Date of Discharge: 01/04/22 DS: Diagnosis Discharge Diagnosis (1) Fracture of tibia and fibula: Status: Acute Problem details: Fracture is in fairly good alignment. Initial treatment plan is conservative management. Nonweightbearing with knee immobilizer. Follow up with Dr. Pinon in 1 week for recheck. (2) Concussion with loss of consciousness: Status: Acute Problem details: CT of the head showed no apparent intracranial bleed. No apparent neurologic sequelae. (3) Laceration of scalp: Status: Acute Problem details: [place] should be removed in 10 days (4) Fall: Status: Acute (5) ASCVD (arteriosclerotic cardiovascular disease): Status: Acute (6) Hx of completed stroke: Status: Acute (7) Acute blood loss anemia: Status: Acute DS: Summary Hospital Course Hospital Course: HOSPITALIST DISCHARGE SUMMARY ATTENDING PHYSICIAN: Carmen Martinez MD FINAL DIAGNOSIS: Proximal tib-fib fracture, closed, nondisplaced Scalp laceration Concussion with loss of consciousness Acute blood loss HOSPITAL FOLLOWUP ISSUES: 1. [facility] for continued PT and OT. Ortho follow-up as outlined. REFERRALS WHILE ADMITTED: Orthopedics REFERRALS AFTER DISCHARGE: Inpatient rehab, OT and PT BRIEF HOSPITAL COURSE: This is an 86-year-old with history stroke and heart disease who fell while while working in his garage. He fell approximately 10 ft from the top of his ladder. He loss consciousness. Suffered TBI with scalp laceration. No intracranial bleeding. He sustained a right proximal tib-fib fracture. Mild displacement. Closed. Operative management. He certainly was concussed initially, had some dizziness with standing and moving. PT OT were very helpful. Orthopedics outlined in non operative care plan. His Plavix and aspirin were held. Only restarted on day 3. His hemoglobin was monitored. The flor was 9.8. VITAL SIGN, MEDICATION, LAB/MICRO, IMAGING SUMMARY (full details available in account tabs or by records request) As stated his flor of hemoglobin was 9.8. On discharge it was 10.0. His electrolytes and renal function were normal. His blood pressure was 119/66. Pulse 66. Rest per 16, unlabored. On room air. Afebrile. Normal INR. Hemoglobin A1c 6.3. Negative COVID on 12/31. X-ray in the ED, right knee Comminuted impacted fracture of the proximal tibial metaphysis. On lateral view, fracture line extends to the tibial plateaus. There is approximately 8 mm posterior displacement of the proximal tibial fracture component. There is an additional mildly displaced fracture of the proximal fibular metaphysis. Small knee joint effusion. Prepatellar soft tissue thickening is noted. Head CT and cervical spine CT in the ED were negative for acute finding. DISCHARGE MEDICATIONS: See Reconciled list REVIEW OF SYSTEMS No new chest pain or dyspnea Pain controlled No voiding difficulties Tolerating diet challenge PHYSICAL EXAM: CONSTITUTIONAL: VITAL SIGNS: see record. HEENT: Normocephalic, atraumatic. PERRL, EOMI, conjunctivae pink, no scleral icterus. Ears and nose externally normal. Pharynx normal. NECK: No JVD. No carotid bruit, no thyromegaly, no adenopathy. CHEST: Clear to auscultation bilaterally. HEART: S1 and S2 normal. Edema ABDOMEN: Soft, nontender. Normal bowel sounds. MUSCULOSKELETAL: No gross joint deformity or swelling. NEURO: Cranial nerves intact. Grossly intact. No asymmetric findings. SKIN: No rashes, petechiae, concerning changes PSYCHIATRIC: Mood euthymic. DISPOSITION: Time spent on discharge 37 minutes. Status at Discharge Functional status at discharge: uses cane/walker Overall status at discharge: patient is not back to baseline Time Spent with Patient Time attestation: Total time spent providing and/or coordinating discharge services: Time spent: Greater than 30 minutes Exam Const: Vital Signs, click to edit/add: Vital Signs - 24 hr 01/03/22 19:00 01/03/22 23:00 01/03/22 23:00 Temperature 98.6 F Pulse Rate Pulse Rate [Pulse Oximeter] 81 80 Respiratory Rate 16 16 16 Blood Pressure Blood Pressure [Le ft Arm] 116/74 Pulse Oximetry 94 92 Oxygen Delivery Me thod Room Air Room Air Oxygen Flow Rate 0 0 01/03/22 23:00 01/04/22 03:00 01/04/22 07:00 Temperature 98.4 F 98.2 F Pulse Rate Pulse Rate [Pulse Oximeter] 80 74 Respiratory Rate 16 18 14 Blood Pressure Blood Pressure [Le ft Arm] 87/60 L 121/62 Pulse Oximetry 92 94 95 Oxygen Delivery Me thod Room Air Nasal Cannula Room Air Oxygen Flow Rate 0 1 01/04/22 10:00 01/04/22 07:00 01/04/22 11:00 Temperature 98.3 F 98.3 F 98 F Pulse Rate 83 Pulse Rate [Pulse Oximeter] 83 96 Respiratory Rate 14 14 16 Blood Pressure 128/71 Blood Pressure [Le ft Arm] 128/71 119/66 Pulse Oximetry 95 96 Oxygen Delivery Me thod Room Air Room Air Oxygen Flow Rate DS: Data Data Completed and Pending Labs on day of discharge: Labs from last 24 hours 01/04/22 06:31 Hgb 10.0 L Discharge Plan Discharge Disposition: [facility] Date of Admission: 12/31/21 18:44 Attending Provider on Discharge: Carmen Martinez Consulting Providers: Kan Pinon Primary Care Provider: Provider,Not a Local Condition: Improved Anticipated Discharge Date/Time: 01/04/22 09:49 Discharge Medications: New oxycodone 5 mg Tablet 5 - 10 mg PO Q4H PRN (Reason: Moderate Pain) Qty: 30 0RF senna 8.6 mg capsule 17.2 mg PO BID Qty: 30 0RF Continued simvastatin 20 mg tablet 20 mg PO HS Label Comments: TAKE 1 TABLET BY MOUTH ONCE DAILY WITH EVENING MEAL lisinopril 10 mg tablet 10 mg PO DAILY Label Comments: TAKE 1 TABLET BY MOUTH ONCE DAILY nitroglycerin 0.4 mg tablet, sublingual 0.4 mg sublingual Q5M PRN Label Comments: DISSOLVE ONE TABLET UNDER THE TONGUE EVERY 5 MINUTES NEEDED FOR CHEST PAIN. DO NOT EXCEED A TOTAL OF 3 DOSES IN 15 MINUTES PreserVision AREDS-2 250-90-40-1 mg capsule 1 tab PO Q48H Label Comments: TAKES EVERY OTHER DAY aspirin 81 mg tablet,chewable 81 mg PO DAILY Discharge Orders: Discharge Order (Routine); Ordered 01/04/22 Ordered By: Carmen Martinez Activity Restrictions/Additional Instructions: Oxygen at 0-2 L per nasal cannula as needed to maintain O2 sats above 90%. Activity Level: No Weight Bearing Activity Detail: Nonweightbearing on left leg. Maintain knee immobilizer. Discharge Diet: Regular Follow Up Appointments: Kan Pinon MD [Staff Physician] - (Follow up with Orthopedics in 1 week) Provider,Not a Local [Primary Care Provider] - Discharge Comment: discharge via EMT transfer to [facility]
== END 2022-01-04 12:05 ==
LOC: ED 18:16 → MEDSURG 18:47
PROVIDERS: Family Medicine; Admitting Provider Family Medicine; Emergency Provider Emergency Medicine Emergency Medical Services; Visit Provider Family Medicine
DX: S82.192A Other fracture of upper end of left tibia, initial encounter for closed fracture (principal); S82.492A Other fracture of shaft of left fibula, initial encounter for closed fracture; S01.01XA Laceration without foreign body of scalp, initial encounter; W11.XXXA Fall on and from ladder, initial encounter; Y92.015 Private garage of single-family (private) house as the place of occurrence of the external cause; S06.0X9A Concussion with loss of consciousness of unspecified duration, initial encounter; R00.1 Bradycardia, unspecified; I69.398 Other sequelae of cerebral infarction; R26.89 Other abnormalities of gait and mobility; I25.10 Atherosclerotic heart disease of native coronary artery without angina pectoris; D62 Acute posthemorrhagic anemia
CPT/HCPCS: 12004; 36415; 70450; 72125; 73560; 80048; 83036; 85018; 85025; 85610; 86850; 86900; 86901; 87635; 93005; 94761; 96361; 96372; 96374; 96375; 96376; 97110; 97161; 97165; 97530; 97535; 99285; 99291; G0378; A9153; A9270; G0379; G0390; J1170; J1650; J7030

== ENCOUNTER 2022-01-04 11:55 | Outpatient (CLI) | payer MEDICARE, BC, SELFPAY ==
--- OUTSIDE RECORDS SUMMARY | 2022-01-13 10:23 | XMS_ITS | Continuity of Care Document ---
:1935 Author Organization [facility] Care Team Providers Name Role Phone [facility] Unavailable Unavailable Problems Combined list of problems from Department of Defense and Veterans Affairs facilities. It does not include entries that were removed or entered in error. Problem Status Onset Date Problem Type Date of Comments Source Resolution Hearing Loss, Active Condition [place] [facility] Partial * HCS (ICD-9-CM 389.9) Tinnitus * Active Condition [place] [facility] (ICD-9-CM HCS 388.30) Social History Combined list of available smoking, tobacco, and other social history from Department of Defense andVeterans Affairs facilities. Social History Type Response Date Comment Source Tobacco smoking status LIFETIME NON-TOBACCO 03/06/2012 [facility] NHIS USER
== END 2022-01-04 11:56 | disposition home or self-care (01) ==
PROVIDERS: PCP Family Medicine; Visit Provider Family Medicine
DX: M79.605 Pain in left leg (principal)
CPT/HCPCS: A0425; A0428

== ENCOUNTER 2024-07-02 18:36 | Emergency (ER) | payer MEDICARE, BC, SELFPAY ==
--- OUTSIDE RECORDS SUMMARY | 2024-07-02 18:38 | XMS_ITS | Continuity of Care Document ---
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 Name Role Phone Unavailable Unavailable Unavailable Procedures Procedure Date Postop followup visit X-ray exam lower spine 2-3 views 2005 Lumbar spine fusion, posterolateral Low back disk surgery/decompress 2005 Added spine disk surgery/decompress Insert spine fixation, posterior 2005 Autograft, spine surg, morselized PA Assist Lumbar spine fusion, posterola teral PA Assist Low back disk surgery/decompre ss PA Assist Added spine disk surgery/decom press PA Assist Insert spine fixation, posteri or PA Assist Autograft, spine surg, morseli zed Office/outpatient visit,[facility] 2005 X-ray exam lwr spine, min 4 views Advance Directives Directive Yes / No Effective Date File Name No Information Encounters Encounter Description Practice Location Reason(s) For Visit Diagnoses Date Provider Providers Copied on Encounter [facility], [address] [place], [place] [address], [place], [address], [place] tel:[phone] [facility] No Information 3-200 8 No Information [facility], [address] [place], [place] [address], [place], [address], [place] tel:[phone] [facility] - [facility] No Information 0 8-200 6 Niko Marquez. [facility], [address] [place] [address], [address], [place], [place], [id number], [place]. tel:[phone] Referring Provider: [facility] [address], [place], [address]. tel:[phone] [facility], [address] [place], [place] [address] [place] [address], [facility], tel:[phone] [place] [facility] No Information 1-200 6 Pope Jimmy. [facility], [address] [place] [address], [address], [place], [id number], . tel:[phone] Referring Provider: Gael Lees [facility] [address], [place], [address]. tel:[phone] Office/outpat ient visit,[place], [facility], [address] [place], [place] [address] [place] [address], [facility], tel:[phone] [facility] - [facility] No Information -200 6 Pope Jimmy. [facility], [address] [place] [address], [address], [place], [id number], . tel:[phone] Referring Provider: [facility] [address], [place], [address]. tel:[phone] Family History Family Member Type Diagnosis Age At Onset No Information Payers Payer name Insurance type Covered democrat ID Authoriza tion(s) [place] [id number] [place] [id number] [id number] [id number] Social History Type Description Quantity Date Captured Comments Sex Male Smoking Status No Information Chief Complaint And Reason For Visit No Information Reason For Referral Reason For Referral No Information History Of Present Illness Encounter Date Complaint History Of Prese nt Illness No Information Functional Status Date Functional Assessmen t No Information Instructions Date Instruction Additional Infor mation No Information Assessments Type Assessment Date No Information Patient Care Teams Name Effective Dates (start - stop) Status Members No Information
[2024-07-02 18:40] VITALS: BP 149/90; PULSE 54; RESP 16; TEMP 35.7; O2SAT 97
--- NOTE | 2024-07-02 19:02 | ED_ITS ---
HPI - Ear Problem General Time Seen by Provider: 19:02 Date Seen: 07/02/24 Chief complaint: Ear/Nose/Throat Problem Stated complaint: Cant hear in either ear Time Seen by Provider: 07/02/24 18:38 Source: patient, family and RN notes reviewed Mode of arrival: ambulatory Limitations: no limitations History of Present Illness HPI Narrative: This 88-year-old male is coming in accompanied by a family with sudden onset of bilateral hearing loss, happened about an hour prior to presentation. He did clean out his ears with Q-tips earlier today, maybe a couple hours ago. But it seems a hearing loss came after that. Patient really is not hearing me at all, his family is providing history. Related Data Home Medications ?Medication ?Instructions ?Recorded ?Confirmed aspirin 81 mg chewable tablet 81 mg PO DAILY 12/31/21 07/02/24 lisinopril 10 mg tablet 10 mg PO DAILY 12/31/21 07/02/24 nitroglycerin 0.4 mg sublingual 0.4 mg sublingual Q5M PRN 12/31/21 03/26/22 tablet simvastatin 20 mg tablet 20 mg PO HS 12/31/21 07/02/24 vit C 250 mg-vit E 90 mg-zinc 40 1 tab PO Q48H 12/31/21 03/26/22 mg-copper 1 [id number] capsule (PreserVision AREDS-2) acetaminophen 500 mg tablet 1,000 mg PO Q6H PRN 02/12/22 03/26/22 (Tylenol Extra Strength) Previous Rx's ?Medication ?Instructions ?Recorded oxycodone 5 mg tablet 5 - 10 mg (1 - 2 x 5 mg) PO Q4H 01/01/22 PRN Moderate Pain #30 tabs sennosides 8.6 mg capsule (senna) 17.2 mg (2 x 8.6 mg) PO BID #30 01/01/22 caps Allergies Allergy/AdvReac Type Severity Reaction Status Date / Time No Known Drug Allergies Allergy Verified 03/26/22 10:19 Review of Systems Narrative: As per HPI. [facility] Medical History (Updated 07/02/24 @ 19:53 by Nereida Purvis MD) Hx of completed stroke ?Z86.73 - Personal history of transient ischemic attack (TIA), and cerebral infarction without residual deficits (ICD-10) ASCVD (arteriosclerotic cardiovascular disease) ?I25.10 - Atherosclerotic heart disease of [place] coronary artery without angina pectoris (ICD-10) Sinus bradycardia ?R00.1 - Bradycardia, unspecified (ICD-10) Hyperlipidemia ?E78.5 - Hyperlipidemia, unspecified (ICD-10) CVA (cerebral vascular accident) ?I63.9 - Cerebral infarction, unspecified (ICD-10) Surgical History (Updated 01/12/22 @ 14:02 by Arely Stephenson ~ [facility]) History of back surgery ?Z98.890 - Other specified postprocedural states (ICD-10) H/O hernia repair ?Z98.890 - Other specified postprocedural states (ICD-10) ?Z87.19 - Personal history of other diseases of the digestive system (ICD-10) History of cholecystectomy ?Z90.49 - Acquired absence of other specified parts of digestive tract (ICD- 10) History of heart artery stent ?Z95.5 - Presence of coronary angioplasty implant and graft (ICD-10) Social History (Reviewed 02/12/22 @ 10:31 by Arely Stephenson ~ [facility]) Highest level of school completed/degree received: high school graduate Smoking Status: Never smoker Do you use any of these nicotine containing products: None Second hand tobacco smoke exposure: Yes (years ago) How often do you have a drink containing alcohol: never How often do you have six or more drinks on one occasion: Never AUDIT-C Alcohol total score: 0 Non-prescribed substance use: denies use service: Yes Exam Const: Vital Signs, click to edit/add: Vital Signs - 24 hr 07/02/24 18:40 Temperature 96.2 F L Pulse Rate [Pulse Oximeter] 54 L Respiratory Rate 16 Blood Pressure [Ri ght Upper Arm] 149/90 H Pulse Oximetry 97 Oxygen Delivery Me thod Room Air Patient is alert, interactive, no apparent distress. He is ambulatory into the ED of his own accord with his family. He really is not hearing very well. Both canals are obstructed by cerumen, it is deeper than what I can curette out. Will have nursing staff see if they can irrigate to clear the ear canals, see if that helps with his hearing. Otherwise, external ear structures appear normal. Documenting provider has reviewed patient's vital signs: yes Course Course ED Course: Will have nursing staff flush both ear canals in see if this remedies his hearing. Suspect he obstructed his canals with attempts at cleaning them with Q-tips. Reevaluation(s) Time of Reevaluation #1: 19:50 Reevaluation #1: The patient's left TM and canal are now normal. His right canal has cleared of some of this wax but down quite deep there is still some wax obscuring the whole tympanic membrane. He does state he can hear now though. He does agree that his hearing is better in his left ear than his right. Vital Signs Vital signs: Initial Vital Signs Temperature 96.2 F L 07/02/24 18:40 Temperature Source Temporal Artery Scan 07/02/24 18:40 Pulse Rate 54 L 07/02/24 18:40 Respiratory Rate 16 07/02/24 18:40 Blood Pressure 149/90 H 07/02/24 18:40 Blood Pressure Mean 109 H 07/02/24 18:40 Blood Pressure Position Sitting 07/02/24 18:40 Pulse Oximetry 97 07/02/24 18:40 Oxygen Delivery Method Room Air 07/02/24 18:40 Vital Signs Temperature 96.2 F L 07/02/24 18:40 Pulse Rate 54 L 07/02/24 18:40 Respiratory Rate 16 07/02/24 18:40 Blood Pressure 149/90 H 07/02/24 18:40 Pulse Oximetry 97 07/02/24 18:40 Oxygen Delivery Method Room Air 07/02/24 18:40 Temperature 96.2 F L 07/02/24 18:40 Pulse Rate 54 L 07/02/24 18:40 Respiratory Rate 16 07/02/24 18:40 Blood Pressure 149/90 H 07/02/24 18:40 Pulse Oximetry 97 07/02/24 18:40 Oxygen Delivery Method Room Air 07/02/24 18:40 Discharge Plan Discharge Clinical Impression: Cerumen impaction Qualifiers: Laterality: bilateral Qualified Code(s): H61.23 - Impacted cerumen, bilateral Patient Disposition: Home, Self-Care Condition: Stable Additional Instructions: There is still some wax quite deep in the right ear canal. Recommend getting some [id number]-[id number]-vqbugsi drops like Debrox and using these daily for the next week. Schedule an ear irrigation for the right ear in clinic in about 1 week. Do not recommend using Q-tips to clean wax from ears as it can cause impaction and obstruction. Prescriptions: No Action acetaminophen [Tylenol Extra Strength] 500 mg tablet 1,000 mg PO Q6H PRN simvastatin 20 mg tablet 20 mg PO HS Patient Comments: TAKE 1 TABLET BY MOUTH ONCE DAILY WITH EVENING MEAL lisinopril 10 mg tablet 10 mg PO DAILY Patient Comments: TAKE 1 TABLET BY MOUTH ONCE DAILY nitroglycerin 0.4 mg tablet, sublingual 0.4 mg sublingual Q5M PRN Patient Comments: DISSOLVE ONE TABLET UNDER THE TONGUE EVERY 5 MINUTES NEEDED FOR CHEST PAIN. DO NOT EXCEED A TOTAL OF 3 DOSES IN 15 MINUTES PreserVision AREDS-2 250-90-40-1 mg capsule 1 tab PO Q48H Patient Comments: TAKES EVERY OTHER DAY aspirin 81 mg tablet,chewable 81 mg PO DAILY oxycodone 5 mg Tablet 5 - 10 mg PO Q4H PRN (Reason: Moderate Pain) Qty: 30 0RF senna 8.6 mg capsule 17.2 mg PO BID Qty: 30 0RF Follow Up/Referrals: Reagan Marques MD [Primary Care Provider] - Stand Alone Forms: [employer] Info Instructions
--- OUTSIDE RECORDS SUMMARY | 2024-07-02 19:26 | XMS_ITS | Continuity of Care Document ---
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 Name Role Phone Unavailable Unavailable Unavailable Procedures [...] Assist Autograft, spine surg, morseli zed Office/outpatient visit,[facility] 2005 X-ray exam lwr spine, min 4 views Advance Directives Directive Yes / No Effective Date File Name No Information Encounters Encounter Description Practice Location Reason(s) For Visit Diagnoses Date Provider Providers Copied on Encounter [facility], [address] [place], [place] [address], [place], [address], [place] tel:[phone] [facility] No Information 3-200 8 No Information [facility], [address] [place], [place] [address], [place], [address], [place] tel:[phone] [facility] - [facility] No Information 0 8-200 6 Niko Marquez. [facility], [address] [place] [address], [address], [place], [place], [id number], [place]. tel:[phone] Referring Provider: [facility] [address], [place], [address]. tel:[phone] [facility], [address] [place], [place] [address] [place] [address], [facility], tel:[phone] [place] [facility] No Information 1-200 6 Pope Jimmy. [facility], [address] [place] [address], [address], [place], [id number], . tel:[phone] Referring Provider: Gael Lees [facility] [address], [place], [address]. tel:[phone] Office/outpat ient visit,new, [facility], [address] [place], [place] [address] [place] [address], [facility], tel:[phone] [facility] - [facility] No Information -200 6 Pope Jimmy. [facility], [address] [place] [address], [address], [place], [id number], . tel:[phone] Referring Provider: [facility] [address], [place], [address]. tel:[phone] Family History Family Member Type Diagnosis Age At Onset No Information Payers Payer name Insurance type Covered republican ID Authoriza tion(s) [place] [id number] [place] [id number] XZM [id number] Social History Type Description Quantity Date Captured [...]
--- NOTE | 2024-07-02 19:45 | ED.NURSE ---
Flushed patient's ears. Large amount of wax out of the right, moderate amount of of the left. Patient tolerated the procedure well. He states he is able to hear much better. Provider updated.
== END 2024-07-02 20:03 | disposition home or self-care (01) ==
PROVIDERS: Emergency Provider Family Medicine; PCP Family Medicine
DX: H61.23 Impacted cerumen, bilateral (principal)
CPT/HCPCS: 69209; 99282; 99283

== ENCOUNTER 2024-10-16 13:00 | Outpatient (RCR) | payer MEDICARE, BC, SELFPAY | END 2024-10-22 16:21 | disposition home or self-care (01) | PROVIDERS: PCP Family Medicine; Visit Provider Student in an Organized Health Care Education/Training Program | DX: M25.512 Pain in left shoulder (principal); G89.29 Other chronic pain; Z51.89 Encounter for other specified aftercare | CPT/HCPCS: 97110; 97161 ==

== ENCOUNTER 2025-01-21 08:45 | Outpatient (CLI) | payer MEDICARE, BC, SELFPAY | END 2025-01-21 08:46 | disposition home or self-care (01) | LOC: AMB 01-23 16:08 | PROVIDERS: PCP Family Medicine; Visit Provider Internal Medicine | DX: R42 Dizziness and giddiness (principal) | CPT/HCPCS: A0425; A0429 ==

== ENCOUNTER 2025-01-21 09:29 | Emergency (ER) | payer MEDICARE, BC, SELFPAY ==
--- OUTSIDE RECORDS SUMMARY | 2012-03-06 02:54 | XMS_ITS | Continuity of Care Document ---
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 It does not include entries that were removed or entered in error. 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 Social History Type Response Date Comment Sourc e Tobacco smoking status NHIS LIFETIME NON-TOBACCO USER 03/06/2012 [facility]
--- OUTSIDE RECORDS SUMMARY | 2012-03-06 02:54 | XMS_ITS | Continuity of Care Document ---
Author Name [facility] Organization [facility] Care Team Providers Care [employer] Attendant Name Role Phone [facility] Unavailable Unavailable Problems Combined list of problems from Department of Defense and Veterans Affairs facilities. It does not include entries that were removed or entered in error. 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 Social History Type Response Date Comment Sourc e Tobacco smoking status NHIS LIFETIME NON-TOBACCO USER 03/06/2012 [facility]
--- OUTSIDE RECORDS SUMMARY | 2025-01-21 09:31 | XMS_ITS | Clinical Summary ---
Author Organization [facility] Address [address] [place] [id number] Care Team Providers Care Spiral Tube Winder Name Role Phone Wilfrid Baron DO Primary Care Provider [phone] Allergies No known active allergies Medications aspirin chewable 81 mg chewable tablet Take 1 tablet by mouth once daily with a meal. 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 0 02/29/20 19 Active medication order composerIndication s:Gastroesophageal reflux disease, unspecified whether esophagitis present Elboz. 1 tablet as needed for GERD. 0 11/12/19 21 Active nitroglycerin (NITROSTAT) 0.4 mg sublingual tabletIndications: ASCVD (arteriosclerotic cardiovascular disease) Place 1 Tablet (0.4 mg) under the tongue every 5 minutes if needed for Chest Pain. 25 Tablet 1 02/17/20 23 Active blood sugar diagnostic (Contour Next Test Strips) stripIndications:d iabetes mellitus Dispense test strips covered by the patient insurance. Test 1 times per day. 100 Each 12 03/02/20 23 Active lancets (Microlet Lancet)Indications :diabetes mellitus For testing blood sugars at home daily 100 Each 12 03/02/20 23 Active continuous glucose monitor READER (FREESYLE YULI)Indications: Controlled type 2 diabetes mellitus with stage 1 chronic kidney disease, without long-term current use of insulin (HC) To be used to read blood sugars per rn concurrent review's directions. 6 Each 3 07/11/19 24 Active continuous glucose monitor SENSOR KIT (FREESYLE YULI)Indications: Controlled type 2 diabetes mellitus with stage 1 chronic kidney disease, without long-term current use of insulin (HC) To be used to read blood sugars per rn concurrent review's directions. 1 Each 07/11/19 24 Active FreeStyle Yuli 3 [place] for continuous blood glucose monitor (CGM)Indications:T ype 2 diabetes mellitus without complication, without long-term current use of insulin (HC) To be used to read blood sugars follow rn concurrent review directions. 1 Each 04/05/20 24 Active FreeStyle Yuli 3 Sensor for continuous blood glucose monitor (CGM)Indications:U ncontrolled type 2 diabetes mellitus with hypoglycemia, unspecified hypoglycemia coma status (HC) To be used to read blood sugars, follow rn concurrent review directions. 6 Each 04/05/20 24 Active rosuvastatin (CRESTOR) 20 mg tabletIndications: Uncontrolled type 2 diabetes mellitus with hypoglycemia, unspecified hypoglycemia coma status (HC) Take 1 Tablet (20 mg) by mouth at bedtime. 90 Tablet 3 07/27/19 25 Active metFORMIN (GLUCOPHAGE XR) 500 mg Extended-Release tabletIndications: Uncontrolled type 2 diabetes mellitus with hypoglycemia, unspecified hypoglycemia coma status (HC) Take 3 Tablets (1,500 mg) by mouth once daily with evening meal. 270 Tablet 3 07/27/19 25 Active lisinopriL 20 mg tabletIndications: Stage 3a chronic kidney disease (HC),HTN (hypertension) Take 1 Tablet (20 mg) by mouth once daily. 90 Tablet 3 11/14/19 25 Active pioglitazone 15 mg tabletIndications: Type 2 diabetes mellitus without complication, without long-term current use of insulin (HC) Take 1 Tablet (15 mg) by mouth once daily. 90 Tablet 3 11/16/19 25 Active Active Problems Problem Noted Date Diagnosed Date Stage 3 chronic kidney disease 11/13/2024 Overview (11/13/2024): 07/26/24: Cr 1.2 mg/dL 07/26/24: GFR 59 mL/min/1.73m2 07/26/24: BUN 19 mg/dL On meds: lisinopril Hx of completed stroke 11/13/2024 Fracture of tibia and fibula 11/13/2024 Overview (11/13/2024): Left comminuted impacted displaced fracture of the proximal tibial metaphysis and extends to the tibial plateaus Left mildly displaced fracture of the proximal fibular metaphysis Type 2 diabetes mellitus 07/26/2024 Overview (11/13/2024): AI Summary: As of 07/26/24: The patient has a history of type 2 diabetes mellitus, with occasional metformin non-compliance and past use of Jardiance. At times, the diabetes has been controlled, with A1c levels as low as 7.1. The patient has also had stage 1 chronic kidney disease and has been prescribed various blood glucose monitoring devices and supplies on multiple occasions between 03/02/2023 and 04/05/2024; the patient was also referred to diabetes education on 08/08/2023 and was prescribed two new diabetes medications on 07/11/2023. 07/26/24: A1c 8.1 % OF TOTAL HGB 07/26/24: Cr 1.2 mg/dL On meds: metformin Recent encounter dx: 07/26/24: Appointment - [facility] 07/26/24: Appointment - [facility] 07/08/24: Support OP Encounter - [facility] 04/25/24: Appointment - [facility] 04/05/24: Appointment - [facility] Recent notes: 07/26/24: Progress Notes by Wilfrid Baron DO ... [+] Type 2 diabetes mellitus without complication, without long-term current use of insulin (HC) E11.9 BASIC METABOLIC PANEL ... [+] Controlled type 2 diabetes mellitus with stage 1 chronic kidney disease, without long-term current use of insulin (HC) E11.22 04/25/24: Progress Notes - Medicare Wellness Visit by DO Tushar Simpson.. [+] Type 2 diabetes mellitus without complication, without long-term current use of insulin (HC) E11.9 HEMOGLOBIN A1C 04/05/24: Progress Notes by DO Tushar Simpson.. [+] Type 2 diabetes mellitus without complication, without long-term current use of insulin (HC) E11.9 HEMOGLOBIN A1C MONITORING POCT 08/08/23: Progress Notes by DO Tushar Simpson.. [+] Patient has a history of myocardial infarction, embolic stroke, type 2 diabetes, and hypertension. 07/11/23: Progress Notes by DO Tushar Jade.. 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 (10/17/2013): -Neli procedural related 12/05/2012 -Hemiparesis affecting right side Hemiparesis affecting domina nt side as late effect of stroke 12/10/2012 ASCVD (arteriosclerotic cardiovascular disease) 12/07/2012 Overview (10/18/2013): -Acute NSTEMI, Level Two transfer 12/06/2013 -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/06/2013 -Coronary CTA 10/17/2013: Proximally highly remodeled subtotal RCA occlusion Patent mid RCA and ramus intermedius stents - angiogram 10/17/13: s/p STORMY pRCA; other prior stents patent Unstable angina 12/06/2012 Hypertension 12/06/2012 Hayfever Resolved Problems Problem Noted Date Diagnosed Date Resolved Date NSTEMI (non-ST elevated myoc ardial infarction) 12/07/2012 10/17/2013 Encounters Date Type Department Care Team Description 12/20/2024 Orders Only [facility] Scanner 1 scan: (1-Ord) [facility] LU, 12/20/2024 11/13/2024 11:25 AM CDT Office Visit [facility] [address] [place] [address] Wilfrid Baron DO Diabetes 11/13/2024 Travel from Last 3 Months Immunizations Immunization Administration Dates Next Due COVID-19 vaccine (Pfizer-Bio NTech 30mcg/0.3mL) 12YO+ BIVALENT PF, MDV 03/16/2022 COVID-19 vaccine (Pfizer-Bio NTech 30mcg/0.3mL) PF, MDV 04/07/2021,10/03/2020,09/12/2020 Influenza RIV4 (Age 18+ Years) PRESERV FREE 01/22 Influenza Virus, Unspecified 02/19/2020 Influenza, High-dose Inactivated 03/06/2024,01/22,01/28/2016 Influenza, High-dose Quadriv alent Inactivated 02/15/2023 Influenza, IIV3 (Age >=3 years) 02/23/2010 Influenza, IIV4 02/22/2020,01/29/2014 Influenza, IIV4 (=>6mos) MDV 02/19/2020 Influenza, Inactivated AIIV4 (Age 65+ Years) Preserv Free 03/16/2022,02/17/2021 Influenza, Inactivated IIV3 (Age 65+ Years) Preserv Free 02/28/2019,02/22/2017 Pneumococcal Poly,23-Valent (Pneumovax) 01/28/20 16 Pneumococcal conj 13-Valent (Prevnar 13) 015 RSV, Recombinant ADJ Reconst ituted (Arexvy 120MCG/0.5mL) 04/05/2024 Td, Preservative Free (age >= 7 Years) 0 Tdap 04/05/2024 Family History Medical History Relation Name Comments Diabetes Sister Relation Name Status Comments Sister Social History Tobacco Use Types Packs/Day Years Used Date Smoking Tobacco: Never Smokeless Tobacco: Never Tobacco Cessation:Counseling Given: Yes Comments:tried as a teenager only Alcohol Use Standard Drinks/Week Comments Not Currently 0 (1 standard drink = 0.6 oz pur e alcohol) PHQ-2 Answer Date Recorded PHQ-2 TOTAL SCORE 0 04/25/2024 Social Connections Answer Date Recorded Do you often feel lonely or isolated from those around you? 0 07/26/2024 Financial Resource Strain Answer Date R ecorded Difficulty of Paying Living Expenses 3 07/26/2024 Difficulty of Paying Living Expenses Not on file 07/26/2024 Food Insecurity Answer Date Recorded Do you worry your food will run out before you are able to buy more? 1 07/26/2024 Transportation Needs Answer Date Record ed Does lack of transportation keep you from medica l appointments? 1 07/26/2024 Does lack of transportation keep you from work, meetings or getting things that you need? 1 07/26/2024 Housing Stability Answer Date Recorded What is your housing situation today? 1 07/26/2024 Utilities Answer Date Recorded Do you have trouble paying f or utilities (for example, heat, electricity, water, phone)? 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 Gender Identity Not on file Sexual Orientation Not on file Obstetrics History Last Filed Vital Signs Vital Sign Reading Time Taken Comments Blood Pressure 174/73 11/13/2024 11:53 AM CDT re check Pulse 64 11/13/2024 11:25 AM CDT Temperature 36.3 C (97.4 F) 04/14/2021 10:54 AM LOADER OPERATOR SUPERVISOR Respiratory Rate 18 12/09/2021 10:34 AM CDT Oxygen Saturation 98% 11/13/2024 11:25 AM CDT Inhaled Oxygen Concentration - - Weight 97.2 kg (214 lb 3.2 oz) 07/26/2024 8:54 A M LOADER OPERATOR SUPERVISOR Height 168.9 cm (5' 6.5) 04/25/2024 8:48 AM LOADER OPERATOR SUPERVISOR Body Mass Index 34.05 04/25/2024 8:48 AM LOADER OPERATOR SUPERVISOR Plan of Treatment Upcoming Encounters Date Type Department Care Team (Late st Contact Info) Description 02/14/2025 8:05 AM CDT Office Visit [facility] [address] [place] [address] Wilfrid Baron DO [address] [place] [address] Health Maintenance Due Date Last Done Comments Zoster (shingles) series for age 50+ (1 of 2) 1987 COVID-19 vaccine series (2023- season) 2024 03/06/2024, 03/16/2022, 04/07/2021, Additional history exists Influenza Vaccine (#1) 2025 , 03/16/2022, 02/17/2021, Additional history exists BMI (ht and wt on same day) for age 18+ 04/25/2025 04/25/2024, 11/04/2023, 02/16/2023, Additional history exists Depression screening for age 12+ 04/25/2025 04/25/2024, 02/17/2023, 02/16/2023, Additional history exists Medicare Wellness for age 65+ 04/26/2025 04/25/2024, 02/16/2023, 03/26/2021, Additional history exists Tetanus booster 04/05/2034 04/05/2024, 08/22/2009 Pneumococcal series for age 50+ Completed 01/28/2016, 12/04/2014 RSV vaccine for adults or Completed 04/05/2024 Hepatitis B series for 19+ Aged Out N o longer eligible based on patient's age to complete this topic Procedures Procedure Name Priority Date/Time Associated Diagnosis Comments SCAN-OPERATIVE/PROCE DURE REPORT 12/20/2024 12:00 AM CDT BASIC METABOLIC PANEL Routine 11/13/2024 11:14 AM CDT Type 2 diabetes mellitus without complication, without long-term current use of insulin (HC) HEMOGLOBIN A1C Routine 11/13/2024 11:14 AM CDT Controlled type 2 diabetes mellitus with stage 1 chronic kidney disease, without long-term current use of insulin (HC) from Last 3 Months Results * SCAN-OPERATIVE/PROCEDURE REPORT (12/20/2024 12:00 AM CDT) us Scanner OTHER Final Result * (ABNORMAL) HEMOGLOBIN A1C (11/13/2024 11:14 AM CDT) HEMOGLOBIN A1C 9.1(H) <5.7 % [facility] Comment: For someone without known diabetes, a hemoglobin A1c value of 6.5% or greater indicates that they may have diabetes and this should be confirmed with a follow-up test. For someone with known diabetes, a value <7% indicates that their diabetes is well controlled and a value greater than or equal to 7% indicates suboptimal control. A1c targets should be individualized based on duration of diabetes, age, comorbid conditions, and other considerations. Currently, no consensus exists regarding use of hemoglobin A1c for diagnosis of diabetes for children. Blood BLOOD SPECIMEN / Unknown 11/13/2024 11:14 AM CDT 11/13/2024 11:14 AM CDT us Wilfrid Baron DO CHEMISTRY Final Result [facility] [address] [place] [address], [facility] [address] [place] [address] * (ABNORMAL) BASIC METABOLIC PANEL (11/13/2024 11:14 AM CDT) [facility] GLUCOSE 179(H) 65 - 99 mg/dL [facility] Comment: Fasting reference interval For someone without known diabetes, a glucose value >125 mg/dL indicates that they may have diabetes and this should be confirmed with a follow-up test. UREA NITROGEN (BUN) 18 7 - 25 mg/dL [facility] CREATININE 1.12 0.70 - 1.22 mg/dL [facility] EGFR 64 > OR = 60 mL/min/1. 73m2 [facility] BUN/CREATININE RATIO SEE NOTE: 6 - 22 (calc) [facility] Comment: Not Reported: BUN and Creatinine are within reference range. SODIUM 136 135 - 146 mmol/L [facility] POTASSIUM 4.4 3.5 - 5.3 mmol/L [facility] CHLORIDE 101 98 - 110 mmol/L [facility] CARBON DIOXIDE 26 20 - 32 mmol/L [facility] ELECTROLYTE BALANCE 9 7 - 17 mmol/L (calc) [facility] CALCIUM 9.2 8.6 - 10.3 mg/dL [facility] Blood BLOOD SPECIMEN / Unknown 11/13/2024 11:14 AM CDT 11/13/2024 11:14 AM CDT Sadepatrick Lobalbir DO CHEMISTRY Final Result [facility] [address] [place] [address], [facility] [address] [place] [address] from Last 3 Months Insurance [place] PB ONLY [place] ONLY MEDICARE PART B HB ONLY Advance Directives Documents on File Type Date Recorded 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
[2025-01-21 09:37] VITALS: BP 150/80; BP 162/80; BP 170/86; BP 173/76; PULSE 51; PULSE 55; PULSE 57; PULSE 61; RESP 17; TEMP 36.1; O2SAT 96; BMI 32.9
--- NOTE | 2025-01-21 09:41 | ED.DIZZY ---
HPI - Dizziness General Chief Complaint: Dizziness/Vertigo Stated Complaint: fall Time Seen by Provider: 01/21/25 09:37 History of Present Illness HPI Narrative: Patient is a 89-year-old gentleman who woke this morning with neck stiffness in the paraspinal muscles the posterior neck. He has no radiculopathy. He fell dizzy initially but it his dizziness has resolved. Patient lives locally in a home with his . He has had no recent falls no injuries. No nausea no vomiting no fevers no chills. Patient otherwise has been feeling fine. Related Data Home Medications ?Medication ?Instructions ?Recorded ?Confirmed aspirin 81 mg chewable tablet 81 mg PO DAILY 12/31/21 07/02/24 lisinopril 10 mg tablet 10 mg PO DAILY 12/31/21 07/02/24 nitroglycerin 0.4 mg sublingual 0.4 mg sublingual Q5M PRN 12/31/21 03/26/22 tablet simvastatin 20 mg tablet 20 mg PO HS 12/31/21 07/02/24 vit C 250 mg-vit E 90 mg-zinc 40 1 tab PO Q48H 12/31/21 03/26/22 mg-copper 1 [id number]-[id number] capsule (PreserVision AREDS-2) acetaminophen 500 mg tablet 1,000 mg PO Q6H PRN 02/12/22 03/26/22 (Tylenol Extra Strength) Previous Rx's ?Medication ?Instructions ?Recorded oxycodone 5 mg tablet 5 - 10 mg (1 - 2 x 5 mg) PO Q4H 01/01/22 PRN Moderate Pain #30 tabs sennosides 8.6 mg capsule (senna) 17.2 mg (2 x 8.6 mg) PO BID #30 01/01/22 caps Allergies Allergy/AdvReac Type Severity Reaction Status Date / Time No Known Drug Allergies Allergy Verified 01/21/25 09:37 Review of Systems Status of ROS: Reports: 10 or more systems reviewed and unremarkable except as noted in History and below [facility] Medical History Hx of completed stroke ?Z86.73 - Personal history of transient ischemic attack (TIA), and cerebral infarction without residual deficits (ICD-10) ASCVD (arteriosclerotic cardiovascular disease) ?I25.10 - Atherosclerotic heart disease of [place] coronary artery without angina pectoris (ICD-10) Sinus bradycardia ?R00.1 - Bradycardia, unspecified (ICD-10) Hyperlipidemia ?E78.5 - Hyperlipidemia, unspecified (ICD-10) CVA (cerebral vascular accident) ?I63.9 - Cerebral infarction, unspecified (ICD-10) Surgical History History of back surgery ?Z98.890 - Other specified postprocedural states (ICD-10) H/O hernia repair ?Z98.890 - Other specified postprocedural states (ICD-10) ?Z87.19 - Personal history of other diseases of the digestive system (ICD-10) History of cholecystectomy ?Z90.49 - Acquired absence of other specified parts of digestive tract (ICD-10) History of heart artery stent ?Z95.5 - Presence of coronary angioplasty implant and graft (ICD-10) Social History Highest level of school completed/degree received: high school graduate Smoking Status: Never smoker Do you use any of these nicotine containing products: None Second hand tobacco smoke exposure: Yes (years ago) How often do you have a drink containing alcohol: never How often do you have six or more drinks on one occasion: Never AUDIT-C Alcohol total score: 0 Non-prescribed substance use: denies use service: Yes Exam Narrative: Exam Narrative: EXAM GENERAL: Patient appears comfortable and well. EYES: No scleral icterus. LYMPH: No supraclavicular or cervical lymphadenopathy. SKIN: Visible skin seen during exam normal or with benign process only. EXT: No dependent lower extremity pedal edema. HEART: Regular rate and rhythm with no murmurs, rubs, or gallops. LUNGS: Clear to auscultation bilaterally with no crackles or wheezes. ABD: Soft, non tender, non distended. PSYCH: Good eye contact, speech is not pressured. Neurologic cranial nerves 2-12 grossly intact no focal defects. Const: Vital Signs, click to edit/add: Vital Signs - 24 hr 01/21/25 09:37 01/21/25 09:37 Temperature 96.9 F L Pulse Rate [Pulse Oximeter] 55 L Pulse Rate [orthos tatic lying] 51 L Pulse Rate [orthos tatic sitting] 57 L Pulse Rate [orthos tatic standing] 61 Respiratory Rate 17 Blood Pressure [Ri ght Upper Arm] 170/86 H Blood Pressure [or thostatic lying] 162/80 H Blood Pressure [or thostatic sitting] 173/76 H Blood Pressure [or thostatic standing ] 150/80 H Pulse Oximetry 96 Oxygen Delivery Me thod Room Air Course Course ED Course: Patient seen examined. EKG shows normal sinus rhythm. Will give a 500 mL fluid bolus as well as Toradol 15 mg. No vertigo seen on exam. I did send off CBC CMP UA. Will reassess. Vital Signs Vital signs: Initial Vital Signs Temperature 96.9 F L 01/21/25 09:37 Temperature Source Temporal Artery Scan 01/21/25 09:37 Pulse Rate 51 L 01/21/25 09:37 Respiratory Rate 17 01/21/25 09:37 Blood Pressure 162/80 H 01/21/25 09:37 Blood Pressure Mean 114 H 01/21/25 09:37 Pulse Oximetry 96 01/21/25 09:37 Oxygen Delivery Method Room Air 01/21/25 09:37 Vital Signs Temperature 96.9 F L 01/21/25 09:37 Pulse Rate 51 L 01/21/25 09:37 Respiratory Rate 17 01/21/25 09:37 Blood Pressure 162/80 H 01/21/25 09:37 Pulse Oximetry 96 01/21/25 09:37 Oxygen Delivery Method Room Air 01/21/25 09:37 Temperature 96.9 F L 01/21/25 09:37 Pulse Rate 51 L 01/21/25 09:37 Respiratory Rate 17 01/21/25 09:37 Blood Pressure 162/80 H 01/21/25 09:37 Pulse Oximetry 96 01/21/25 09:37 Oxygen Delivery Method Room Air 01/21/25 09:37 Medications Administered Medications: Discontinued Medications Generic Name Dose Route Start Last Admin Trade Name Freq PRN Reason Stop Dose Admin Sodium Chloride 500 mls @ 500 mls/hr 01/21/25 09:41 01/21/25 10:44 0.9 % Sodium Chloride 500 Ml IV 01/21/25 10:40 Infused .Q1H MT Infusion Ketorolac Tromethamine 15 mg 01/21/25 09:40 01/21/25 09:52 Ketorolac 15 Mg/Ml Inj IVP 01/21/25 09:41 15 mg ONCE ONE Administration MDM - Dizziness MDM Narrative Medical decision making narrative: Patient is a 89-year-old gentleman who woke with mildly stiff neck and some lightheadedness. He has no further lightheadedness and has no orthostatic changes on his vital signs here in the emergency room. He did receive 500 mL bolus as well as the 15 mg of Toradol with improvement of his neck stiffness as well. Lab workup including CBC comprehensive metabolic panel and COVID influenza RSV all negative. Patient is feeling much better I do think he can safely be discharged back to his home. His and daughter are present. Lab Data Labs: Lab Results 01/21/25 01/21/25 Range/Units 10:04 10:08 WBC 6.76 (4.50-11.00) K/uL RBC 4.64 (4.30-5.90) m/uL Hgb 14.1 (13.5-17.5) gm/dL Hct 43.0 (37.0-53.0) % MCV 93 (80-100) fL MCH 30 (26-34) pg MCHC 33 (32-36) gm/dL RDW Coeff of Zaira 14.0 (11.5-15.5) % Plt Count 174 (140-440) K/uL Neut % (Auto) 73.3 H (42.0-72.0) % Lymph % (Auto) 19.1 L (20-44) % [place] % (Auto) 6.7 (0.0-11.0) % Eos % (Auto) 0.3 (0.0-7.0) % Baso % (Auto) 0.3 (0.0-3.0) % Neut # (Auto) 5.00 (1.7-7.0) K/uL Lymph # (Auto) 1.30 (0.90-2.90) K/uL [place] # (Auto) 0.50 (0.00-0.90) K/UL Eos # (Auto) 0.02 (0.00-0.50) K/uL Baso # (Auto) 0.02 (0.00-0.30) K/uL Abs Immat Gran (auto) 0.02 (0.00-0.30) K/uL Imm/Tot Granulo (auto) 0.3 % Sodium 135 (135-149) mmol/L Potassium 4.3 (3.6-5.1) mmol/L Chloride 102 (96-114) mmol/L Carbon Dioxide 24 (20-32) mmol/L Anion Gap 9 (7-15) mEq/L BUN 19 (7-30) mg/dL Creatinine 1.0 (0.5-1.5) mg/dL Estimated Creat Clear 48.66 Estimated GFR 73 ml/min Glucose 187 H (60-115) mg/dL Calcium 9.1 (8.4-10.6) mg/dL Total Bilirubin 0.9 (0.1-1.5) mg/dL AST 25 (12-35) U/L ALT 21 (4-50) U/L Alkaline Phosphatase 68 (40-150) U/L Total Protein 7.3 (6.0-8.3) g/dL Albumin 4.1 (3.3-5.0) g/dL SARS-CoV-2 (PCR) Negative SARS-CoV-2 (Negative) Influenza Type A (PCR) Negative PCR FLU A (Negative) Influenza Type B (PCR) Negative PCR FLU B (Negative) RSV (PCR) Negative PCR RSV (Negative) POC Troponin I 0.00 L (0.01-0.04) ng/ml Discharge Plan Discharge Clinical Impression: Dizziness Patient Disposition: Home, Self-Care Condition: Stable Instructions: Dizziness (ED) Additional Instructions: Continue current medications Advanced diet activity as tolerated Follow-up with your doctor as needed this week. Activity Level: No Restrictions Discharge Diet: Regular Prescriptions: No Action acetaminophen [Tylenol Extra Strength] 500 mg tablet 1,000 mg PO Q6H PRN simvastatin 20 mg tablet 20 mg PO HS Patient Comments: TAKE 1 TABLET BY MOUTH ONCE DAILY WITH EVENING MEAL lisinopril 10 mg tablet 10 mg PO DAILY Patient Comments: TAKE 1 TABLET BY MOUTH ONCE DAILY nitroglycerin 0.4 mg tablet, sublingual 0.4 mg sublingual Q5M PRN Patient Comments: DISSOLVE ONE TABLET UNDER THE TONGUE EVERY 5 MINUTES NEEDED FOR CHEST PAIN. DO NOT EXCEED A TOTAL OF 3 DOSES IN 15 MINUTES PreserVision AREDS-2 250-90-40-1 mg capsule 1 tab PO Q48H Patient Comments: TAKES EVERY OTHER DAY aspirin 81 mg tablet,chewable 81 mg PO DAILY oxycodone 5 mg Tablet 5 - 10 mg PO Q4H PRN (Reason: Moderate Pain) Qty: 30 0RF senna 8.6 mg capsule 17.2 mg PO BID Qty: 30 0RF Follow Up/Referrals: Reagan Marques MD [Primary Care Provider, Family Practice] Stand Alone Forms: MyHealth Info Instructions
[2025-01-21] MEDS: 0.9 % SODIUM CHLORIDE 500 ML 500 ML IV (09:51)
[2025-01-21 10:10] LABS: Hematocrit 43.0 % (37.0-53.0); Hemoglobin* 14.1 gm/dL (13.5-17.5); Immature Granulocytes Abs Auto 0.02 K/uL (0.00-0.30); Immature Granulocytes Pct Auto 0.3 %; Mean Corpuscular HGB Conc 33 gm/dL (32-36); Mean Corpuscular Hemoglobin 30 pg (26-34); Mean Corpuscular Volume 93 fL (80-100); RDW Coefficient of Variation % 14.0 % (11.5-15.5); Red Blood Count 4.64 m/uL (4.30-5.90); White Blood Count* 6.76 K/uL (4.50-11.00)
[2025-01-21 10:12] LABS: Lymphocytes Absolute Auto 1.30 K/uL (0.90-2.90); Slide Review Reflex No
[2025-01-21 10:15] VITALS: PULSE 52; RESP 8; O2SAT 97
[2025-01-21 10:17] LABS: Troponin, Point-of-Care* 0.00 ng/ml (0.01-0.04)
[2025-01-21 10:24] LABS: Chloride* 102 mmol/L (96-114)
[2025-01-21 10:25] LABS: Albumin* 4.1 g/dL (3.3-5.0); Potassium* 4.3 mmol/L (3.6-5.1); Sodium* 135 mmol/L (135-149)
[2025-01-21 10:27] LABS: Alanine Aminotransferase* 21 U/L (4-50); Aspartate Amino Transferase* 25 U/L (12-35); Blood Urea Nitrogen* 19 mg/dL (7-30); Carbon Dioxide* 24 mmol/L (20-32); Creatinine* 1.0 mg/dL (0.5-1.5); Est. Creatinine Clearance* 48.66; Estimated Glomerular Filt Rate 73 ml/min
[2025-01-21 10:28] LABS: Alkaline Phosphatase* 68 U/L (40-150); Anion Gap 9 mEq/L (7-15); Bilirubin Total* 0.9 mg/dL (0.1-1.5); Calcium* 9.1 mg/dL (8.4-10.6); Glucose* 187 mg/dL (60-115); Total Protein* 7.3 g/dL (6.0-8.3)
[2025-01-21 10:49] LABS: PCR FLU A Negative PCR FLU A (Negative); PCR FLU B Negative PCR FLU B (Negative); PCR RSV Negative PCR RSV (Negative); SARS PCR* Negative SARS-CoV-2 (Negative)
[2025-01-21 11:03] VITALS: BP 161/100; PULSE 56; RESP 18; O2SAT 97
== END 2025-01-21 11:17 | disposition home or self-care (01) ==
PROVIDERS: Emergency Provider Internal Medicine; PCP Family Medicine
DX: R42 Dizziness and giddiness (principal)
CPT/HCPCS: 36415; 80053; 81003; 84484; 85025; 87631; 96374; 99283; 99284; J1885; J7030